=== PATIENT | male | born 1935 | race Caucasian/White ===

== ENCOUNTER 2016-08-09 16:14 | Inpatient (IN) | payer MEDICARE, OTHER ==
[~2016-08-09] VITALS: Ht 172.7 cm; Wt 73.5 kg
[~2016-08-09 16:14] MED LIST: AMBI5TAB PO; AMIO20TA FT; AMLO5TAB2 PO; AMMO12LO TOP; ASPI81CH PO; ASPI81TA PO; ATOR1TAB19 PO; BENA20TA6 PO; BIMA01SOL OU; BRIM1OPD OU; CAPT62TA PO; CARV6.25 PO; CIPR500T89 PO; CLEO300C2 PO; CLOP75TA2 PO; COLA100C PO; COMB0.2S OU; COMP1TAB PO; ERYT5OPO OU; FLAG500T PO; FLOM5CAP PO; FLUC200T2 PO; FURO40TA2 PO; K-TA10TA2 PO; KEPP1000 PO; KEPP1TAB2 PO; KEPP250T5 PO; LASI20TA PO; LEVO88TA3 PO; LISI10TA4 PO; MAGO400T PO; META28.35 PO; METF500T PO; MICR10CA PO; MOM30SS PO; NIAC1TAB PO; NYST100024 TOP; POTA10CA PO; SENO8.6T2 PO; TAMS0.4C2 PO; TEMO0.0517 TOP; TIMO0.5S4 OU; TRUS1SOL OU; TYLE325T5 PO; VIMP200T PO; VITMTA PO; ZYLO300T4 PO
[2016-08-09 17:23] LABS: MEAN CORPUSCULAR HEMOGLOBIN 33.2 pg (27.0-33.0); MEAN CORPUSCULAR HGB CONC 33.4 g/dl (32.0-36.5); MEAN CORPUSCULAR VOLUME 99.3 fl (80.0-96.0); PLATELET COUNT, AUTOMATED 226 k/mm3 (150-450); RED CELL DISTRIBUTION WIDTH 14.2 % (11.5-14.5); WHITE BLOOD COUNT 4.6 K/mm3 (4.0-10.0)
[2016-08-09 17:35] LABS: ALBUMIN/GLOBULIN RATIO 0.83 (1.00-1.93); ALKALINE PHOSPHATASE 109 U/L (45-117); ALT/SGPT 24 U/L (12-78); ANION GAP 8 MEQ/L (8-16); AST/SGOT 12 U/L (15-37); BILIRUBIN,DIRECT 0.1 MG/DL (0.0-0.2); BILIRUBIN,TOTAL 0.3 MG/DL (0.2-1.0); BLOOD UREA NITROGEN 26 MG/DL (7-18); CALCIUM LEVEL 8.6 MG/DL (8.8-10.2); CARBON DIOXIDE LEVEL 32 MEQ/L (21-32); CHLORIDE LEVEL 103 MEQ/L (98-107); CREATININE FOR GFR 1.03 MG/DL (0.70-1.30); GLOMERULAR FILTRATION RATE > 60.0 (>35); GLUCOSE, FASTING 110 MG/DL (83-110); POTASSIUM SERUM 3.3 MEQ/L (3.5-5.1); SODIUM LEVEL 143 MEQ/L (136-145); TOTAL PROTEIN 6.6 GM/DL (6.4-8.2)
[2016-08-09 17:36] LABS: BANDS 1 % (< 11); EOSINOPHILS 4 % (0-5)
--- NOTE | 2016-08-09 17:38 | REP ---
AP PORTABLE CHEST: 08/09/2016 at 4:56 p.m.: Comparison: PA and lateral chest 04/26/2016, 03/04/2016. Clinical history: Weakness. Findings. Dual lead pacer over the left upper chest with leads in the right atrium and right ventricle. Sternotomy wires are again seen. Surgical clips in the mediastinum from prior CABG noted. There is left ventricular configuration of the heart. I see no vascular redistribution or pulmonary edema. Some atelectatic change. Retrocardiac left lower lobe suspected with poor visualization of the diaphragm. The right lung base was clear. The aorta is calcified at the arch, minimally tortuous with aneurysm. Airway intact. Bones demineralized. Impression: 1. Cardiomegaly with left ventricular enlargement but no vascular redistribution, pulmonary edema or definite effusion. 2. Loss of definition left diaphragm may reflect some basilar atelectatic change left lower lobe. 3. Prior CABG and a dual lead pacer unchanged. Signed by Jonas Cruz MD 08/09/2016 08:02 P
[2016-08-09] MEDS ORDERED: ACETAMINOPHEN TAB 650MG DOSE (2X325MG) PO PRN (18:15)
[2016-08-09] MEDS ORDERED: BISACODYL 5 MG TAB PO PRN (18:15)
[2016-08-09] MEDS ORDERED: POTASSIUM CHLORIDE 10 MEQ SR TABLET PO ONE (18:15)
--- NOTE | 2016-08-09 18:15 | ECGEPIP ---
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
[2016-08-09] MEDS ORDERED: AMMO12CR4 TOP (19:02)
[2016-08-09] MEDS ORDERED: VIMP150T PO (19:03)
[2016-08-09] MEDS ORDERED: VITA10002 PO (19:19)
[2016-08-09] MEDS ORDERED: COMB0.2S OU (19:19)
[2016-08-09] MEDS ORDERED: LEVO112T25 PO (19:19)
[2016-08-09] MEDS ORDERED: FISH1000 PO (19:19)
[2016-08-09] MEDS ORDERED: CAPT125TA PO (19:19)
[2016-08-09] MEDS ORDERED: FURO40TA2 PO (19:19)
[2016-08-09] MEDS ORDERED: LEVE750T5 PO (19:19)
[2016-08-09] MEDS ORDERED: VENL75TA3 PO (19:19)
[2016-08-09] MEDS ORDERED: POTA20TA PO (19:19)
[2016-08-09] MEDS ORDERED: AMIO20TA PO (19:19)
[2016-08-09 20:00] VITALS: BP 138/70
[2016-08-09] MEDS ORDERED: levETIRAcetam 250MG TABLET (KEPPRA) As Ordered ONE (22:08)
[2016-08-09] MEDS ORDERED: TAMSULOSIN 0.4 MG CAP As Ordered ONE (22:08)
[2016-08-09] MEDS ORDERED: POTASSIUM CHLORIDE 10 MEQ SR TABLET As Ordered ONE (22:08)
[2016-08-09] MEDS ORDERED: zolPIDEM TARTRATE 5 MG TAB As Ordered ONE (22:09)
[2016-08-09] MEDS: OMEGA-3 1050MG CAPSULE PO SCH (22:33)
[2016-08-09] MEDS: TAMSULOSIN 0.4 MG CAP PO SCH (22:33)
[2016-08-09] MEDS: levETIRAcetam 250MG TABLET (KEPPRA) PO SCH (22:33)
[2016-08-09] MEDS: ATORVASTATIN 10 MG TAB PO SCH (22:34)
[2016-08-09] MEDS: CAPTOpril 6.25 MG PER 1/2 TABLET PO SCH (22:34)
[2016-08-09] MEDS: zolPIDEM TARTRATE 5 MG TAB PO SCH (22:34)
[2016-08-09] MEDS: CYANOCOBALAMIN 500 MCG TAB PO SCH (22:35)
[2016-08-09] MEDS: DORZOLAMIDE 2% OPHTH SOLN 10 ML BTL OU SCH (22:35)
[2016-08-09] MEDS ORDERED: HEPARIN SOD (PORCINE) 5000 UNITS/ML VIAL As Ordered ONE (22:37)
[2016-08-09] MEDS ORDERED: LACOSAMIDE 50 MG TAB (VIMPAT) As Ordered ONE (22:37)
[2016-08-09] MEDS: LACOSAMIDE 50 MG TAB (VIMPAT) PO SCH (22:39)
[2016-08-09] MEDS: HEPARIN SOD (PORCINE) 5000 UNITS/ML VIAL SC SCH (22:39)
--- NOTE | 2016-08-09 23:12 | HPE ---
DATE OF ADMISSION: 08/09/2016 HOSPITALIST ATTENDING: Martin Perez MD PRIMARY CARE PROVIDER: Wesly Lin MD CHIEF COMPLAINT: Recurrent falls requiring placement. HISTORY OF PRESENT ILLNESS: 81-year-old male with history of atrial fibrillation , coronary artery disease (CAD), congestive heart failure (CHF), diabetes, glaucoma, hypercholesterolemia, hypertension, myocardial infarction (WA), non-Hodgkin lymphoma, carotid endarterectomy, coronary artery bypass graft (CABG), cardiac stents, laser surgery to eyes, pacemaker insertion, follows with Dr. Cook' office, presents to the emergency room brought in by his daughter and her due to inability to care for him at home from recurrent falls. The patient has been extremely weak for the past few weeks requiring two-person assistance. 2 weeks ago, he has been able to walk. "The best I can do is stand with two people holding me." For the past 6 months, he has at least had a fall every month hitting his head, receiving stitches for lacerations on the scalp. The patient was brought by the daughter to his medical oncologist in [place] due to complaints of generalized weakness with concerns for relapse of his non-Hodgkin lymphoma. His medical oncologist at that time admitted him to [facility] for observation and found no concerns for relapse from the lymphoma. No infectious etiology for his weakness. However, a neurologist in [place] evaluated him and felt that he had Parkinson's disease. He was then discharged home but, due to the weather yesterday, he stayed in [place] overnight and was sent home today. At home around 3 p.m., he was unable to stand up unassisted and with maximum assistance with two people at home while going to the toilet, the family felt that he could not care for himself at home and felt that placement would be much more appropriate. He was brought in to [facility] for placement as the family cannot care for him at home. PAST MEDICAL HISTORY: Recent diagnosis of Parkinson's disease at [facility] in [place], atrial fibrillation, CAD, diabetes, hypertension, hypercholesterolemia, CHF, glaucoma, myocardial infarction (WA), non-Hodgkin lymphoma. PAST SURGICAL HISTORY: Carotid endarterectomy, CABG, cardiac stents, laser surgery to the eyes, pacemaker insertion. ALLERGIES: BUCKWHEAT, EGG WHITES, PENICILLIN causing swelling. RAW FRUITS. HOME MEDICATIONS: - ammonia lactate 12% topically area as needed - lacosamide 150 mg twice a day - levetiracetam 750 mg twice a day - Synthroid 125 mcg daily - potassium 20 mEq twice a day - amiodarone 200 mg daily - aspirin 81 mg daily - atorvastatin 10 daily - Lumigan eye drops, one drop daily - brimonidine timolol 0.2 to 0.5% ophthalmic drop, one drop every 12 hours - captopril 12.5 half a tablet twice a day - clobetasol topical cream - fish oil one gram daily - Lasix 40 mg daily - multivitamin one tablet daily - Flomax 0.4 daily - venlafaxine 75 mg daily - cyanocobalamin-salcaprozate 1000 mcg daily - zolpidem 5 mg daily SOCIAL HISTORY: The patient had been a previous smoker, quit in 1961, less than a pack a day while he was in the [employer]. He has quit alcohol use. 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 Lives currently with his and daughter and in their home. Resides also with three grandchildren, two dogs, and one cat. REVIEW OF SYSTEMS: Per history of present illness (HPI); 12-point system otherwise negative. PHYSICAL EXAMINATION: Blood pressure 142/69. Pulse 69, sinus rhythm. Respiratory 18. No temperature was noted. Pulse oximetry 97% on room air. Weight is 73.84 kg. 5 feet 8 inches tall. GENERAL: The patient has scleral injection, dry eyes. He is awake, alert, oriented to person and place and year. He is answering questions appropriately. Speech is fluent. He appears to have cogwheel rigidity. Pill rolling tremors. No facial asymmetry. Tongue is midline. Neck is supple. Full range of motion. No cervical lymphadenopathy or thyromegaly. LUNGS: Clear to auscultation. No wheezing, rales, or rhonchi. HEART: S1, S2, currently sinus rhythm. No murmurs, rubs, or gallops. Pacemaker noted in left anterior chest. ABDOMEN: Soft, nontender, nondistended. Positive bowel sounds. EXTREMITIES: Warm, dry, well perfused. Trace lower extremity edema. Left foot is in a brace secondary to a recent fall and ankle sprain. Range of motion of the left lower extremity could not be performed. EKG: Atrial paced rhythm, ventricular rate at 69, with left axis deviation. Nonspecific ST-T wave changes. LABORATORY DATA: White count of 4.6, hemoglobin 11, hematocrit 33, platelet count 226. Sodium 143, potassium 3.3, chloride 103, bicarbonate 32, BUN 26, creatinine 1, glucose 110, calcium 8.6, total bilirubin 0.3, direct bilirubin 0.1, ALC 12, ALT 24, alkaline phosphatase 109, ammonia 25, total CK 32, MB fraction of 1, troponin I 0.02, total protein of 6.6, and albumin of 3. ASSESSMENT AND PLAN: This is an 81-year-old male with history of CAD, WA, CHF, diabetes, hypertension, hypercholesterolemia, atrial fibrillation, glaucoma, complaining of generalized weakness for several months with recurrent falls sustaining lacerations requiring sutures. The patient was evaluated recently at [facility], admitted for observation for 2 days for generalized weakness, possible resumption of his non-Hodgkin lymphoma. At that time, he was diagnosed with Parkinson's disease with no recurrence of the non-Hodgkin's lymphoma with discharge home yesterday. Due to weather, the patient stayed in [place] overnight and had gone home today. The patient's family had requested for placement due to maximum assistance by two people at home. The patient is agreeable. The patient will be admitted for observation under hospitalist service, Dr. Martin Perez. IMPRESSION: 1. Recurrent falls secondary to progressive Parkinson's disease. Dr. Tulio Candelaria of neurology has been consulted to adjust patient's medication and for further monitoring. The patient has previously been evaluated by Dr. Damon in the past. Fall precautions. 2. History of CAD, WA, congestive heart failure. Appears to be well compensated. Continue with home medications for now, aspirin, atorvastatin, captopril, fish oil, Lasix. Strict intake and output (I and O). Daily weights. Monitor for symptoms of decompensation. 3. Atrial fibrillation. Currently paced rhythm. On chronic amiodarone and aspirin. Due to recurrent falls, full anticoagulation could not be given due to risk of increased bleeding. 4. Hypothyroidism. Continue levothyroxine. 5. Parkinson's disease. Neurology has been consulted, Dr. Candelaria. 6. Non-Hodgkin lymphoma. Stable. Workup at [facility] per medical oncology was negative with no signs of recurrence. 7. Insulin-dependent diabetes. Consistent-carbohydrate diet. Resume home medications. Check A1c. 8. Hypercholesterolemia. Continue fish oil. 9. Electrolyte abnormality, low potassium. Supplement with potassium chloride 20 mEq twice a day. 10. History of glaucoma. Continue eye drops, Lumigan, brimonidine. 11. Anemia. Repeat complete blood count (CBC). No acute indication for blood transfusion. No active bleeding. The patient will be assigned to Dr. Martin Perez 7 a.m. on 08/10/2016. RIAZ
[2016-08-10] VITALS: BP 121/63
[2016-08-10 04:00] VITALS: BP 105/59
[2016-08-10] MEDS ORDERED: HEPARIN SOD (PORCINE) 5000 UNITS/ML VIAL As Ordered ONE (06:00)
[2016-08-10] MEDS: HEPARIN SOD (PORCINE) 5000 UNITS/ML VIAL SC SCH ×3 (06:44→21:31)
[2016-08-10] MEDS: LEVOTHYROXINE 0.112 MG TAB (112 MCG) PO SCH (06:45)
[2016-08-10 07:16] LABS: MEAN CORPUSCULAR HEMOGLOBIN 34.6 pg (27.0-33.0); MEAN CORPUSCULAR HGB CONC 33.3 g/dl (32.0-36.5); MEAN CORPUSCULAR VOLUME 103.7 fl (80.0-96.0); RED CELL DISTRIBUTION WIDTH 14.2 % (11.5-14.5); WHITE BLOOD COUNT 4.9 K/mm3 (4.0-10.0)
[2016-08-10 07:35] LABS: ANION GAP 10 MEQ/L (8-16); BLOOD UREA NITROGEN 23 MG/DL (7-18); CALCIUM LEVEL 8.5 MG/DL (8.8-10.2); CARBON DIOXIDE LEVEL 29 MEQ/L (21-32); CHLORIDE LEVEL 104 MEQ/L (98-107); CREATININE FOR GFR 0.89 MG/DL (0.70-1.30); GLOMERULAR FILTRATION RATE > 60.0 (>35); GLUCOSE, FASTING 108 MG/DL (83-110); SODIUM LEVEL 143 MEQ/L (136-145)
[2016-08-10 08:00] VITALS: BP 127/59
[2016-08-10] MEDS: MULTIVITAMINS/MINERALS THERAP 1 TAB PO SCH (08:28)
[2016-08-10] MEDS: CYANOCOBALAMIN 500 MCG TAB PO SCH ×2 (08:28→21:30)
[2016-08-10] MEDS: levETIRAcetam 250MG TABLET (KEPPRA) PO SCH ×2 (08:29→21:29)
[2016-08-10] MEDS: VENLAFAXINE **XR** 75MG CAPSULE PO SCH (08:29)
[2016-08-10] MEDS: AMIODARONE 200 MG TAB (PACERONE) PO SCH (08:29)
[2016-08-10] MEDS: FUROSEMIDE 40 MG TAB PO SCH (08:29)
[2016-08-10] MEDS: OMEGA-3 1050MG CAPSULE PO SCH ×2 (08:29→21:30)
[2016-08-10] MEDS: DORZOLAMIDE 2% OPHTH SOLN 10 ML BTL OU SCH ×2 (08:30→21:31)
[2016-08-10] MEDS: ASPIRIN 81 MG CHEW TABLET PO SCH (08:30)
[2016-08-10] MEDS: NYSTATIN 100,000 UNITS/GM TOPICAL PWD 15 GM TOP SCH ×2 (09:00→21:31)
[2016-08-10] MEDS: CAPTOpril 6.25 MG PER 1/2 TABLET PO SCH ×2 (09:02→21:30)
[2016-08-10] MEDS: LACOSAMIDE 50 MG TAB (VIMPAT) PO SCH ×2 (09:03→21:30)
[2016-08-10] MEDS ORDERED: BISACODYL 5 MG TAB As Ordered ONE (09:14)
[2016-08-10 16:00] VITALS: BP 110/54
[2016-08-10] MEDS ORDERED: SENNA 8.6 MG TAB (SENOKOT) PO PRN (16:15)
[2016-08-10] MEDS ORDERED: DOCUSATE SODIUM 100 MG CAP PO PRN (16:15)
[2016-08-10] MEDS ORDERED: MOM 30ML SUSPENSION UDC PO PRN (16:15)
[2016-08-10] MEDS ORDERED: DOCUSATE SODIUM 100 MG CAP As Ordered ONE (16:26)
[2016-08-10] MEDS ORDERED: MOM 30ML SUSPENSION UDC As Ordered ONE (16:26)
--- NOTE | 2016-08-10 18:36 | EDDOCDS ---
Physician Documentation [facility] Name: Zion Mack Age: 81 yrs Sex: Male : 1935 Arrival Date: 08/09/2016 Time: 16:14 Bed Admit Hold Private MD: Wesly Lin H. Disposition: 08/09/16 18:11 Hospitalization ordered by Ruba Sánchez for Inpatient Admission. Preliminary diagnosis are Parkinson's disease, Weakness. - Bed requested for 4 [place]. - Status is Inpatient Admission. 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 - Problem is new. - Symptoms are unchanged. Historical: - Allergies: Buckwheat; egg whites; PENICILLINS (Swelling); raw fruits; - Home Meds: 1. ammonium lactate 12 % topical crea as needed 2. levothyroxine 125 mcg Oral cap 1 cap once daily 3. potassium chloride 20 mEq Oral cpER 1 tab 2 times per day 4. amiodarone 200 mg Oral tab 1 tab once daily 5. aspirin 81 mg Oral tab 1 tab once daily 6. atorvastatin 10 mg oral tab 1 tab once daily 7. Lumigan 0.03 % Opht drop 1 drop once daily 8. brimonidine-timolol 0.2-0.5 % ophthalmic drop 1 drop every 12 hours 9. captopril 12.5 mg Oral tab 0.5 tab 2 times per day 10. clobetasol 0.05 % Topical crea 11. Fish Oil 1,000 mg Oral cap 12. Lasix 40 mg Oral tab 1 tab once daily 13. multivitamin oral cap 1 tablet daily 14. Flomax 0.4 mg Oral cp24 1 cap once daily 15. cyanocobalamin-salcaprozat sod 1,000-100 mcg-mg oral tab 16. lacosamide 150 mg oral tab 1 tab 2 times per day 17. levetiracetam 750 mg oral tab 1 tab 2 times per day 18. venlafaxine 75 mg oral cp24 1 cap once daily 19. zolpidem 5 mg Oral tab 1 tab once daily - PMHx: a fib; CAD; CHF; Diabetes - IDDM: controlled; Glaucoma; Hypercholesterolemia; Hypertension; Myocardial infarction; Non-Hodgkin's Lymphoma; - PSHx: Carotid surgery; CABG; Cardiac stents; laser surgery to eyes; Pacemaker Insertion; - Social history: Smoking status: Patient states former smoker of tobacco. No barriers to communication noted, The patient speaks fluent Greek, Speaks appropriately for age. - Family history: Not pertinent. - : The pt / caregiver states he / she is not on anticoagulants. Home medication list is obtained from a discharge med list. - Exposure Risk Screening:: None identified. Vital Signs: 08/09 16:33 BP 142 / 69; Pulse 69; Resp 18; Temp 97.9; Pulse Ox 97% on R/A; Weight 73.48 kg / 162 hs1 lbs (R); Height 5 ft. 8 in. (172.72 cm) (R); Pain 2/10; 16:33 Body Mass Index 24.63 (73.48 kg, 172.72 cm) hs1 MDM: 16:37 IV Saline Lock ordered. ml 16:38 CBC with Diff Ordered. EDMS 16:38 MED Profile Ordered. EDMS 16:38 Liver Profile Ordered. EDMS 16:38 UA Ordered. EDMS 16:38 Ammonia ([place] Tube on Ice, Not [place]a Green) Ordered. EDMS 16:38 CIP Ordered. EDMS 16:38 Troponin Ordered. EDMS 16:38 Urine Culture Ordered. EDMS 16:39 Chest, 1 View Ordered. EDMS 16:39 ECG WITH READING ER PHYS+CARDIAG ordered. EDMS 17:26 DIFFERENTIAL NO CHARGE Ordered. EDMS 17:26 PLATELET ESTIMATE Ordered. EDMS 17:40 CBC with Diff Reviewed. ml 17:40 MED Profile Reviewed. ml 17:40 Liver Profile Reviewed. ml 17:40 CIP Reviewed. ml 17:40 Ammonia ([place] Tube on Ice, Not [place]a Green) Reviewed. ml 17:40 Troponin Reviewed. ml 17:40 PLATELET ESTIMATE Reviewed. ml 18:01 Financial registration complete. gjb 18:03 [facility] Payment Agreement was scanned into [employer] and attached to record. gjb 18:13 Admission / Observation Status ordered. EDMS 18:13 NO ADDED SALT DIET ordered. EDMS 18:15 PHYSICAL THERAPY EVAL & TREAT ordered. EDMS 19:34 BASIC METABOLIC PROFILE Ordered. EDMS 19:34 COMPLETE BLOOD COUNT Ordered. EDMS 19:45 Admission Orders was scanned into [employer] [place] and attached to record. rs6 08/10 11:47 Other: HINN Letter was scanned into [employer] [place] and attached to record. jl 13:37 T-Sheet-- Draft Copy was scanned into [employer] [place] and attached to record. 14:19 Admission / Observation Status ordered. EDMS Signatures: Dispatcher [employer] EDMS Malvin Johnson MD MD ml Sobkiewicz, Michele, RN RN ms2 Marie Fitzgerald RN RN [facility] Carleen, Maurisio, PSA PSA jl Joi, Sanjuana, Reg Reg gb Ayesha Irizarry RN RN hs1 Bambi Antoine RN RN sls2 Cindy Ahuja, JHONNY WEIR FISHERMAN rs6 Nikki Johnson The chart was reviewed and I authenticate all verbal orders and agree with the evaluation and treatment provided.Corrections: (The following items were deleted from the chart) :08/09 17:21 Home Meds: lacosamide 150 mg oral tab 1 tab 2 times per day; hs1 ms2 08/10 12:08/09 17:21 Home Meds: levetiracetam 750 mg oral tab 1 tab 2 times per day; hs1 ms2 08/10 12:53 08/09 17:21 Home Meds: venlafaxine 75 mg oral cp24 1 cap once daily; hs1 ms2 08/10 12:53 08/09 17:21 Home Meds: zolpidem 5 mg Oral tab 1 tab once daily; hs1 ms2 Attachments: 18:03 [facility] Payment Agreement gjiain 19:45 Admission Orders rs6 13:37 T-Sheet-- Draft Copy MTDD
--- NOTE | 2016-08-10 18:36 | EDDOCDS ---
Nurse's Notes [facility] Name: Kaley Wagner Age: 81 yrs Sex: Male : 1935 Arrival Date: 08/09/2016 Time: 16:14 Bed Admit Hold Private MD: Wesly Lin H. Diagnosis: Parkinson's disease;Weakness Presentation: 08/09 16:20 Presenting complaint: Patient states: spent night in the hotel in [place] last night hs1 due to weather. Woke up this morning and was very weak. Daughter states has been a past 2 week decreasing ambulatory and history of falls. Daughter states was taken to [facility] for weakness and cancer specialist to try and find reason for weakness. Concern for Parkinson's as neurology was consulted. Daughter reports 2 person max assist and family and friends have been enlisted to help and it is becoming an unsafe situation. EMS states: 2 days ago discharged from [facility] due to generalized weakness. Patient continues to have weakness. Unable to get out of bed on own accord. Pt reports extreme fatigue and constipation. Adult Sepsis Screening: The patient does not have new or worsening altered mentation. Patient's respiratory rate is less than 22. Systolic blood pressure is greater than 100. Patient has a qSOFA score of 0- Negative Sepsis Screen. Suicide/Homicide risk assessment- the patient denies having any suicidal and/or homicidal ideations and does not present with any other emotional, behavioral or mental health complaints. Status: Patient is not a vp celebrity services or dependent. Transition of care: patient was not received from another setting of care. 16:20 Acuity: DILLON Level 3 hs1 16:20 Method Of Arrival: Ambulance hs1 Triage Assessment: 16:31 General: Appears in no apparent distress, Behavior is appropriate for age, cooperative. hs1 Pain: Location: left foot Pain currently is 2 out of 10 on a pain scale. Neurological: Level of Consciousness is awake, alert, obeys commands, Oriented to person, place, time, Corrosion Control Engineer are equal bilaterally. Cardiovascular: Rhythm is sinus rhythm No ectopy. Respiratory: Airway is patent Respiratory effort is even, unlabored. Derm: Skin is pink, warm & dry. normal. Musculoskeletal: ortho boot noted to left ankle/foot. Historical: - Allergies: Buckwheat; egg whites; PENICILLINS (Swelling); raw fruits; - Home Meds: 1. ammonium lactate 12 % topical crea as needed 2. levothyroxine 125 mcg Oral cap 1 cap once daily 3. potassium chloride 20 mEq Oral cpER 1 tab 2 times per day 4. amiodarone 200 mg Oral tab 1 tab once daily 5. aspirin 81 mg Oral tab 1 tab once daily 6. atorvastatin 10 mg oral tab 1 tab once daily 7. Lumigan 0.03 % Opht drop 1 drop once daily 8. brimonidine-timolol 0.2-0.5 % ophthalmic drop 1 drop every 12 hours 9. captopril 12.5 mg Oral tab 0.5 tab 2 times per day 10. clobetasol 0.05 % Topical crea 11. Fish Oil 1,000 mg Oral cap 12. Lasix 40 mg Oral tab 1 tab once daily 13. multivitamin oral cap 1 tablet daily 14. Flomax 0.4 mg Oral cp24 1 cap once daily 15. cyanocobalamin-salcaprozat sod 1,000-100 mcg-mg oral tab 16. lacosamide 150 mg oral tab 1 tab 2 times per day 17. levetiracetam 750 mg oral tab 1 tab 2 times per day 18. venlafaxine 75 mg oral cp24 1 cap once daily 19. zolpidem 5 mg Oral tab 1 tab once daily - PMHx: a fib; CAD; CHF; Diabetes - IDDM: controlled; Glaucoma; Hypercholesterolemia; Hypertension; Myocardial infarction; Non-Hodgkin's Lymphoma; - PSHx: Carotid surgery; CABG; Cardiac stents; laser surgery to eyes; Pacemaker Insertion; - Social history: Smoking status: Patient states former smoker of tobacco. No barriers to communication noted, The patient speaks fluent Faroese, Speaks appropriately for age. - Family history: Not pertinent. - : The pt / caregiver states he / she is not on anticoagulants. Home medication list is obtained from a discharge med list. - Exposure Risk Screening:: None identified. Screenin:06 Screening information is obtained from the patient. Fall risk: At risk due to age, hs1 apparent cognitive impairment, gait disturbance, prior history of falls, The following interventions are performed due to a positive Fall Risk Screen: Fall Risk is added to Special Handling on the patient Summary Screen. A Fall Risk Bracelet was applied to the patient. Side Rails are placed in the up position. A Call Velez is given with instruction to call for help when getting out of bed. Fall Alert bracelet is placed on the patient. Assistance ADL's: Requires assistance with meal preparation, this assistance is provided by bathing, assistance is provided by family members, dressing, assistance is provided by is needing more help. toileting, assistance is provided by housework, assistance is provided by family members. Abuse/DV Screen: The patient / caregiver reports he/she is: not in a situation that causes fear, pain or injury. Nutritional screening: No deficits noted. Advance Directives: Currently, there is a health care proxy, There is an active DNR order and the pt has a copy here at this time. There is an active Power of Home Health Caregiver. home support is inadequate. Assessment: 17:12 General: Appears in no apparent distress, Behavior is appropriate for age, cooperative. hs1 Pain: Location: left foot Pain currently is 2 out of 10 on a pain scale. Neurological: Level of Consciousness is awake, alert, obeys commands, Oriented to person, place, time. Cardiovascular: Rhythm is sinus rhythm No ectopy. Respiratory: Airway is patent Respiratory effort is even, unlabored, Respiratory pattern is regular, symmetrical. GI: No deficits noted. Derm: Skin is pink, warm & dry. normal. 18:15 General: Appears in no apparent distress, comfortable, Behavior is appropriate for age, hs1 cooperative. General: Behavior is quiet, Resting on stretcher at present. Daughter helped him with using urinal and urine sent for labs at this time. . Respiratory: Airway is patent Respiratory effort is even, unlabored, Respiratory pattern is regular, symmetrical. Derm: Skin is pink, warm & dry. 19:56 Reassessment: Patient denies pain at this time. Patient states feeling better. Patient cf2 states symptoms have improved. Social Work Consult: 18:47 Social Work Note: HINN letter signed by pt. Pt. daughter, Jessica Batres( [phone]) ms present in ER and also aware of HINN letter. 08/10 08:29 Social Work Note: Spoke with Tasha \T\ PT to let her know Pt needs to be seen in the ED. rb 11:48 Social Work Note: PSA was advised by Case management that HINN letter used in ED jl contains the incorrect contact number for patient's request for a QIO appeal/case review. New HINN (which includes Larry SANDOVALO information) was provided by Case Management, completed by this mortgage underwriter & reviewed with patient's , following completion of PT eval. Vital Signs: 08/09 16:33 BP 142 / 69; Pulse 69; Resp 18; Temp 97.9; Pulse Ox 97% on R/A; Weight 73.48 kg (R); hs1 Height 5 ft. 8 in. (172.72 cm) (R); Pain 2/10; 16:33 Body Mass Index 24.63 (73.48 kg, 172.72 cm) hs1 Vitals: 16:33 Log In Time N/A - ambulance arrival. hs1 ED Course: 16:16 Patient visited by Erum Delatorre, Manager Resort. lbd 16:16 Wesly Lin is Private Physician. lbd 16:16 Patient moved to Waiting lbd 16:16 Patient moved to 4 lbd 16:19 Malvin Johnson MD is Attending Physician. ml 16:19 Patient visited by Malvin Johnson MD. ml 16:29 Triage Initiated hs1 16:57 Patient visited by Mary Arrieta PCA. jlf 16:58 Patient visited by Mary Arrieat PCA. jlf 16:58 EKG done. (by ED staff). Reviewed by Malvin Johnson MD. jlf 17:11 Inserted saline lock: 20 gauge in right forearm and blood collected. The patient hs1 tolerated the procedure well. 18:02 Patient visited by Ayesha Irizarry RN. hs1 18:03 [facility] Payment Agreement was scanned into [employer] and attached to record. gjb 18:03 DIFFERENTIAL NO CHARGE Sent. hs1 18:08 The patient / caregiver is instructed regarding the plan of care and ED course. hs1 18:11 Ruba Sánchez is Hospitalizing Provider. ml 18:14 Chest, 1 View Returned. EDMS 18:41 Patient moved to Admit Hold mcp 19:05 Portia Freeman,RN is Primary Nurse. cf2 19:05 Patient visited by Portia Freeman,PRABHA. cf2 19:13 EKG-ADULT Returned. EDMS 19:22 Patient visited by Portia Freeman,PRABHA. cf2 19:45 Admission Orders was scanned into [employer] and attached to record. rs6 19:56 Patient visited by Portia Freeman RN. cf2 19:56 Patient has correct armband on for positive identification. Placed in gown. Call light cf2 in reach. Side rails up X 1. Side rails up X2. Adult w/ patient. playground monitor on. Pulse ox on. NIBP on. Property :Personal belongings accompany Pt. Door closed. Noise minimized. Visitors limited. Lights dimmed. Moved to private room. Verbal reassurance given. Warm blanket given. Pillow given. Head of bed elevated. 19:56 No procedures done that require assistance. cf2 08/10 04:55 Patient moved to 19 cz 06:21 Patient moved to Admit Hold ml3 11:47 Other: HINN Letter was scanned into [employer] and attached to record. jl 12:38 Patient moved to 31 ct3 13:06 Patient moved to Admit Hold jo3 13:37 T-Sheet-- Draft Copy was scanned into [employer] and attached to record. gb Order Results: Lab Order: CBC with Diff; SPEC'M 08/09/16 16:51 Test: WHITE BLOOD COUNT; Value: 4.6; Range: 4.0-10.0; Units: K/mm3; Status: F Test: RED BLOOD COUNT; Value: 3.39; Range: 4.30-6.10; Abnormal: Below low normal; Units: M/mm3; Status: F Test: HEMOGLOBIN; Value: 11.2; Range: 14.0-18.0; Abnormal: Below low normal; Units: g/dl; Status: F Test: HEMATOCRIT; Value: 33.6; Range: 42.0-52.0; Abnormal: Below low normal; Units: %; Status: F Test: MEAN CORPUSCULAR VOLUME; Value: 99.3; Range: 80.0-96.0; Abnormal: Above high normal; Units: fl; Status: F Test: MEAN CORPUSCULAR HEMOGLOBIN; Value: 33.2; Range: 27.0-33.0; Abnormal: Above high normal; Units: pg; Status: F Test: MEAN CORPUSCULAR HGB CONC; Value: 33.4; Range: 32.0-36.5; Units: g/dl; Status: F Test: RED CELL DISTRIBUTION WIDTH; Value: 14.2; Range: 11.5-14.5; Units: %; Status: F Test: PLATELET COUNT, AUTOMATED; Value: 226; Range: 150-450; Units: k/mm3; Status: F Test: NEUTROPHILS; Value: 64; Range: 35-75; Units: %; Status: F Test: BANDS; Value: 1; Range: < 11; Units: %; Status: F Test: LYMPHOCYTES; Value: 23; Range: 16-52; Units: %; Status: F Test: MONOCYTES; Value: 4; Range: 0-8; Units: %; Status: F Test: EOSINOPHILS; Value: 4; Range: 0-5; Units: %; Status: F Test: ATYPICAL LYMPH; Value: 4; Range: 0-5; Units: %; Status: F Test: MACROCYTOSIS; Value: 1+; Status: F Lab Order: MED Profile; [facility] 08/09/16 16:50 Test: GLUCOSE, FASTING; Value: 110; Range: 83-110; Units: MG/DL; Status: F Test: BLOOD UREA NITROGEN; Value: 26; Range: 7-18; Abnormal: Above high normal; Units: MG/DL; Status: F Test: CREATININE FOR GFR; Value: 1.03; Range: 0.70-1.30; Units: MG/DL; Status: F Test: GLOMERULAR FILTRATION RATE; Value: > 60.0; Range: >35; Status: F Test: SODIUM LEVEL; Value: 143; Range: 136-145; Units: MEQ/L; Status: F Test: POTASSIUM SERUM; Value: 3.3; Range: 3.5-5.1; Abnormal: Below low normal; Units: MEQ/L; Status: F Test: CHLORIDE LEVEL; Value: 103; Range: 98-107; Units: MEQ/L; Status: F Test: CARBON DIOXIDE LEVEL; Value: 32; Range: 21-32; Units: MEQ/L; Status: F Test: ANION GAP; Value: 8; Range: 8-16; Units: MEQ/L; Status: F Test: CALCIUM LEVEL; Value: 8.6; Range: 8.8-10.2; Abnormal: Below low normal; Units: MG/DL; Status: F Test Note: ; Units are mL/min/1.73 m2 Chronic Kidney Disease Staging per NKF: Stage I & II GFR >=60 Normal to Mildly Decreased Stage III GFR 30-59 Moderately Decreased Stage IV GFR 15-29 Severely Decreased Stage V GFR <15 Very Little GFR Left ESRD GFR <15 on LASER/ELECTRO OPTICS TECHNICIAN Lab Order: Liver Profile; SPEC'M 08/09/16 16:50 Test: AST/SGOT; Value: 12; Range: 15-37; Abnormal: Below low normal; Units: U/L; Status: F Test: ALT/SGPT; Value: 24; Range: 12-78; Units: U/L; Status: F Test: ALKALINE PHOSPHATASE; Value: 109; Range: 45-117; Units: U/L; Status: F Test: BILIRUBIN,TOTAL; Value: 0.3; Range: 0.2-1.0; Units: MG/DL; Status: F Test: BILIRUBIN,DIRECT; Value: 0.1; Range: 0.0-0.2; Units: MG/DL; Status: F Test: TOTAL PROTEIN; Value: 6.6; Range: 6.4-8.2; Units: GM/DL; Status: F Test: ALBUMIN; Value: 3.0; Range: 3.2-5.2; Abnormal: Below low normal; Units: GM/DL; Status: F Test: ALBUMIN/GLOBULIN RATIO; Value: 0.83; Range: 1.00-1.93; Abnormal: Below low normal; Status: F Lab Order: UA; SPEC'M 08/09/16 18:08 Test: APPEARANCE, URINE; Value: CLEAR; Range: CLEAR; Status: F Test: COLOR, URINE; Value: YELLOW; Range: YELLOW; Status: F Test: PH,URINE; Value: 6.0; Range: 5.0-9.0; Units: UNITS; Status: F Test: SPECIFIC GRAVITY URINE AUTO; Value: 1.013; Range: 1.002-1.035; Status: F Test: PROTEIN, URINE AUTO; Value: NEGATIVE; Range: NEGATIVE; Units: mg/dL; Status: F Test: GLUCOSE, URINE (UA) AUTO; Value: NEGATIVE; Range: NEGATIVE; Units: mg/dL; Status: F Test: KETONE, URINE AUTO; Value: NEGATIVE; Range: NEGATIVE; Units: mg/dL; Status: F Test: UROBILINOGEN, URINE AUTO; Value: 2.0; Range: 0.0-2.0; Abnormal: Above high normal; Units: mg/dL; Status: F Test: BILIRUBIN, URINE AUTO; Value: NEGATIVE; Range: NEGATIVE; Status: F Test: NITRITE, URINE AUTO; Value: NEGATIVE; Range: NEGATIVE; Status: F Test: LEUKOCYTE ESTERASE, URINE AUTO; Value: NEGATIVE; Range: NEGATIVE; Status: F Test: BLOOD, URINE BLOOD; Value: NEGATIVE; Range: NEGATIVE; Status: F Test: WBC, URINE AUTO; Value: 0; Range: 0-3; Units: /HPF; Status: F Test: RBC, URINE AUTO; Value: 2; Range: 0-3; Units: /HPF; Status: F Test: BACTERIA, URINE AUTO; Value: NEGATIVE; Range: NEGATIVE; Status: F Test: SQUAMOUS EPITHELIAL CELL UR AU; Value: 0; Range: 0-6; Units: /HPF; Status: F Test: MUCUS, URINE; Value: SMALL; Range: NEGATIVE; Status: F Test: HYALINE CAST, URINE AUTO; Value: 5; Range: 0-1; Units: /LPF; Status: F Lab Order: Urine Culture; [facility] 08/09/16 18:08 Test: URINE CULTURE; Value: URINE CULTURE RESULT; Status: F Test: URINE CULTURE; Value: NO GROWTH CLINICAL SIGNIFICANCE 2 OR MORE ORGANISMS; Status: F Lab Order: Ammonia ([place] Tube on Ice, Not [place]); [facility] 08/09/16 16:51 Test: AMMONIA; Value: 25; Range: <32; Units: uMOL/L; Status: F Lab Order: CIP; [facility] 08/09/16 16:50 Test: CPK CREATINE PHOSPHOKINASE; Value: 32; Range: 39-308; Abnormal: Below low normal; Units: U/L; Status: F Test: CK-MB VALUE MASS; Value: 1.0; Range: 0.0-3.6; Units: NG/ML; Status: F Test: MB/CK RELATIVE INDEX; Value: 3.12; Range: < OR =4; Status: F Test Note: ; DIAGNOSIS CRITERIA MMB ng/ml Relative Index (RI) NON-AMI < or = 5 N/A [place]ONE > 5 < or = 4 AMI > 5 > 4 Lab Order: Troponin; SPEC'08/09/16 16:50 Test: TROPONIN I; Value: 0.02; Range: < 0.10; Units: NG/ML; Status: F Test Note: ; Troponin I Reference Interval for [facility] [employer] LOCI: 99th Percentile= 0.00-0.045 ng/ml Risk Stratification: <= 0.10 ng/ml Decreased Risk for Adverse Clinical Events. 0.10-1.50 ng/ml Increased Risk for Adverse Clinical Events. Evaluation of additional criterion and/or repeat testing in 2-6 hours is suggested to rule out myocardial damage. >= 1.50 ng/ml Indicative of Myocardial Injury. Lab Order: PLATELET ESTIMATE; SPEC08/09/16 16:51 Test: PLATELET ESTIMATE; Value: NORMAL; Range: NORMAL; Status: F Lab Order: BASIC METABOLIC PROFILE; SPEC08/10/16 06:50 Test: GLUCOSE, FASTING; Value: 108; Range: 83-110; Units: MG/DL; Status: F Test: BLOOD UREA NITROGEN; Value: 23; Range: 7-18; Abnormal: Above high normal; Units: MG/DL; Status: F Test: CREATININE FOR GFR; Value: 0.89; Range: 0.70-1.30; Units: MG/DL; Status: F Test: GLOMERULAR FILTRATION RATE; Value: > 60.0; Range: >35; Status: F Test: SODIUM LEVEL; Value: 143; Range: 136-145; Units: MEQ/L; Status: F Test: POTASSIUM SERUM; Value: 4.0; Range: 3.5-5.1; Abnormal: Delta; Units: MEQ/L; Status: F Test: CHLORIDE LEVEL; Value: 104; Range: 98-107; Units: MEQ/L; Status: F Test: CARBON DIOXIDE LEVEL; Value: 29; Range: 21-32; Units: MEQ/L; Status: F Test: ANION GAP; Value: 10; Range: 8-16; Units: MEQ/L; Status: F Test: CALCIUM LEVEL; Value: 8.5; Range: 8.8-10.2; Abnormal: Below low normal; Units: MG/DL; Status: F Test Note: ; Units are mL/min/1.73 m2 Chronic Kidney Disease Staging per NKF: Stage I & II GFR >=60 Normal to Mildly Decreased Stage III GFR 30-59 Moderately Decreased Stage IV GFR 15-29 Severely Decreased Stage V GFR <15 Very Little GFR Left ESRD GFR <15 on LASER/ELECTRO OPTICS TECHNICIAN Lab Order: COMPLETE BLOOD COUNT; SPEC'M 08/10/16 06:50 Test: WHITE BLOOD COUNT; Value: 4.9; Range: 4.0-10.0; Units: K/mm3; Status: F Test: RED BLOOD COUNT; Value: 3.05; Range: 4.30-6.10; Abnormal: Below low normal; Units: M/mm3; Status: F Test: HEMOGLOBIN; Value: 10.5; Range: 14.0-18.0; Abnormal: Below low normal; Units: g/dl; Status: F Test: HEMATOCRIT; Value: 31.6; Range: 42.0-52.0; Abnormal: Below low normal; Units: %; Status: F Test: MEAN CORPUSCULAR VOLUME; Value: 103.7; Range: 80.0-96.0; Abnormal: Above high normal; Units: fl; Status: F Test: MEAN CORPUSCULAR HEMOGLOBIN; Value: 34.6; Range: 27.0-33.0; Abnormal: Above high normal; Units: pg; Status: F Test: MEAN CORPUSCULAR HGB CONC; Value: 33.3; Range: 32.0-36.5; Units: g/dl; Status: F Test: RED CELL DISTRIBUTION WIDTH; Value: 14.2; Range: 11.5-14.5; Units: %; Status: F Test: PLATELET COUNT, AUTOMATED; Value: 194; Range: 150-450; Units: k/mm3; Status: F Radiology Order: Chest, 1 View Test: Chest, 1 View REASON FOR EXAMINATION: wkness; AP PORTABLE CHEST: 08/09/2016 at 4:56 p.m.:; ; Comparison: PA and lateral chest 04/26/2016, 03/04/2016.; ; Clinical history: Weakness.; ; Findings. Dual lead pacer over the left upper chest with leads in the right; atrium and right ventricle. Sternotomy wires are again seen. Surgical clips in; the mediastinum from prior CABG noted. There is left ventricular configuration; of the heart. I see no vascular redistribution or pulmonary edema. Some; atelectatic change. Retrocardiac left lower lobe suspected with poor; visualization of the diaphragm. The right lung base was clear. The aorta is; calcified at the arch, minimally tortuous with aneurysm. Airway intact. Bones; demineralized.; ; Impression:; ; 1. Cardiomegaly with left ventricular enlargement but no vascular redistribution,; pulmonary edema or definite effusion.; ; 2. Loss of definition left diaphragm may reflect some basilar atelectatic change; left lower lobe.; ; 3. Prior CABG and a dual lead pacer unchanged.; ; ; Signed by; Jonas Cruz MD 08/09/2016 08:02 P; Radiology Order: EKG-ADULT Test: EKG-ADULT REASON FOR EXAMINATION: wkness; Stationary ECG Study; [facility] - ED; ; Test Date: 2016-08-09; Pat Name: KALEY WAGNER Department:; Room: -; Gender: M Special Investigator: sj; : 1935 Requested By: Malvin Johnson; Order Number: [id number] Reading MD: Jessica Lora; Measurements; Intervals [place]; Rate: 69 P: 189; NC: 357 QRS: -21; QRSD: 90 T: 54; QT: 416; QTc: 449; Interpretive Statements; ELECTRONIC ATRIAL PACEMAKER; BORDERLINE LEFT AXIS DEVIATION; NONSPECIFIC ST T-WAVE ABNORMALITY; ABNORMAL RHYTHM ECG; ; Electronically Signed On 08-09-2016 18:15:44 EST by Jessica Lora; Outcome: 08/09 18:11 Decision to Hospitalize by Provider. ml 19:56 Condition: stable. No special radiology studies were completed. cf2 21:03 Discharge Assessment: Patient awake, alert and oriented x 3. No cognitive and/or cf2 functional deficits noted. Patient verbalized understanding of disposition instructions. Patient awake and alert. patient administered narcotics - no. The following High Risk Discharge criteria are identified: None. Admitted ER admission. 08/10 18:35 Patient left the ED. srm Signatures: Dispatcher [employer] EDMS Malvin Johnson MD MD ml Daly, Linda, Manager Resort Unit lbd Pepe Dennison RN RN ms2 Marie Fitzgerald RN RN [facility] Lizy Nails RN RN mcp Zecher, Calvin, RN RN cz Amina Hewitt, PSA PSA rb Maurisio Durant, PSA PSA jl Jacob, Lizy, PSA PSA ms Joi, Sanjuana, Reg Reg gb Lukas, LizyLowellJena, Manager Resort Unit ml3 Jammie Victor,RN RN jo3 Ayesha Irizarry RN RN hs1 Leslie, Dixie, SET ILLUSTRATOR SET ILLUSTRATOR ct3 Meenakshi, Mary, SET ILLUSTRATOR SET ILLUSTRATOR jlf Cindy Ahuja, SET ILLUSTRATOR SET ILLUSTRATOR rs6 Nikki Johnson Christina,RN RN cf2 Corrections: (The following items were deleted from the chart) 08/09 18:06 16:33 BP 142 / 69; Pulse 69bpm; Resp 18bpm; Pulse Ox 97% RA; 73.48 kg Reported; Height hs1 5 ft. 8 in. Reported; BMI: 24.6; Pain 2/10; hs1 08/10 12:53 08/09 17:21 Home Meds: lacosamide 150 mg oral tab 1 tab 2 times per day; hs1 ms2 08/10 11:53 08/09 17:21 Home Meds: levetiracetam 750 mg oral tab 1 tab 2 times per day; hs1 ms2 08/10 11:53 08/09 17:21 Home Meds: venlafaxine 75 mg oral cp24 1 cap once daily; hs1 ms2 08/10 11:53 08/09 17:21 Home Meds: zolpidem 5 mg Oral tab 1 tab once daily; hs1 ms2 MTDD
[2016-08-10 18:56] VITALS: BP 139/66
[2016-08-10] MEDS: ATORVASTATIN 10 MG TAB PO SCH (21:30)
[2016-08-10] MEDS: TAMSULOSIN 0.4 MG CAP PO SCH (21:30)
[2016-08-10] MEDS: zolPIDEM TARTRATE 5 MG TAB PO SCH (21:31)
[2016-08-10 22:00] VITALS: BP 121/58
[2016-08-11] MEDS: LEVOTHYROXINE 0.112 MG TAB (112 MCG) PO SCH (05:45)
[2016-08-11] MEDS: HEPARIN SOD (PORCINE) 5000 UNITS/ML VIAL SC SCH ×3 (05:45→21:31)
[2016-08-11 06:00] VITALS: BP 125/58
--- NOTE | 2016-08-11 07:15 | CR ---
DATE OF CONSULTATION: 08/10/2016 REFERRING PHYSICIAN: Martin Perez MD REASON FOR CONSULTATION: Frequent falls. HISTORY OF PRESENT ILLNESS: Zion Mack is an 81-year-old man with history of atrial fibrillation, coronary artery disease, status post cardiac bypass, pacemaker placement, diabetes, hypertension, non-Hodgkin's lymphoma who presented to [facility] due to inability to walk and frequent falls. His daughter and her were unable to take care of him at home. Patient has been extremely weak for the last couple of weeks. He has history of seizures and has been on Keppra and Vimpat over the last 1 year, which has been able to control his partial seizures. He started falling down 2 weeks ago, around 07/20/2016. He has fallen four times over the last 2 weeks. He was admitted at [facility] as his daughter took him there as his oncologist works at [facility]. They did not find any evidence of recurrence of lymphoma for which he had chemotherapy in past. Patient has numbness and weakness in his legs. He has imbalance and incoordination. He denies any neck or back pain. He denies any headaches. He denies any recurrent seizures, dysphagia, dysarthria or urinary incontinence. Patient states that as he was about to be discharged from [facility] he was seen by a neurologist who raised possibility of Parkinson disease. I have no notes from [facility]. No medications were started as patient was already discharged from facility and was about to leave. PAST MEDICAL HISTORY: 1. Atrial fibrillation. 2. Coronary artery disease. 3. Diabetes. 4. Hypertension. 5. Dyslipidemia. 6. Congestive heart failure. 7. Non Hodgkin's lymphoma. 8. Seizures. 9. Myocardial infarction. 10. Pacemaker placement. 11. Carotid endarterectomy. 12. Cardiac bypass. 13. Coronary stents. ALLERGIES: PENICILLIN. RAW FRUIT. CURRENT MEDICATIONS: - Vimpat 150 mg by mouth twice a day - Keppra 750 mg by mouth twice a day - Synthroid 125 mcg by mouth daily - potassium chloride 20 mEq by mouth twice a day - amiodarone 2 mg by mouth daily - aspirin 81 mg by mouth daily - Lipitor 10 mg by mouth daily - captopril 12.5 mg by mouth twice a day - Lasix 40 mg by mouth daily - Flomax 0.4 mg by mouth daily - Effexor XR 75 mg by mouth daily - vitamin B12 1000 mcg by mouth daily - Ambien 5 mg by mouth nightly as needed - Timolol eye drops - Lumigan eye drops - Lasix 40 mg by mouth daily - captopril 12.5 mg by mouth twice a day SOCIAL HISTORY: Patient quit smoking many years ago. He denies any alcohol use. He denies illicit drugs. FAMILY HISTORY: Noncontributory. REVIEW OF SYSTEMS: All systems were reviewed and were found to be noncontributory except as mentioned in history of present illness. PHYSICAL EXAMINATION: Temperature 97.8, pulse 70, respiratory rate 18, blood pressure 110/54, 96% saturation on room air. Heart: Regular rate and rhythm. Lungs: Clear to auscultation. Abdomen: Soft, nontender, nondistended. Neurologic exam: Patient is awake, alert, oriented to place, person and time. Normal speech, comprehension and repetition. Extraocular muscles are intact. No facial weakness. Tongue, uvula are midline. 5/5 strength in bilateral upper extremities and 4+/5 strength in legs. Deep tendon reflexes are 1+ in arms and knees and absent at ankles. He has decreased poor <<5:26>> pinprick, vibration sensation in his feet. He needs to two peoples <<5:34>> assistance and is still barely able to walk. Daughter described shuffling gait when he was using his walker. DIAGNOSTIC STUDY: His MRI and MRA scan of brain from 2016 showed small vessel ischemic disease of brain. MRA of neck showed mild internal carotid artery stenosis. ASSESSMENT: 1. Multifactorial gait difficulty. 2. Chemotherapy induced peripheral neuropathy. 3. History of localization related partial onset seizures, not intractable. 4. Suspicion for parkinsonism has been raised at [facility]. 5. There is concern for normal pressure hydrocephalus. PLAN: 1. MRI brain without contrast. 2. Trial of Sinemet 25/100 mg by mouth three times a day. 3. Physical and occupational therapy and rehabilitation. 4. Continue Keppra 750 mg by mouth twice a day and Vimpat 150 mg by mouth twice a day. 5. Check vitamin B12, serum copper, vitamin B1, etc. 6. Follow with our office with Dr. Damon in 2 weeks after hospital discharge.
[2016-08-11] MEDS: levETIRAcetam 250MG TABLET (KEPPRA) PO SCH ×2 (09:07→21:32)
[2016-08-11] MEDS: MULTIVITAMINS/MINERALS THERAP 1 TAB PO SCH (09:07)
[2016-08-11] MEDS: AMIODARONE 200 MG TAB (PACERONE) PO SCH (09:07)
[2016-08-11] MEDS: CAPTOpril 6.25 MG PER 1/2 TABLET PO SCH ×2 (09:07→21:32)
[2016-08-11] MEDS: VENLAFAXINE **XR** 75MG CAPSULE PO SCH (09:07)
[2016-08-11] MEDS: OMEGA-3 1050MG CAPSULE PO SCH ×2 (09:07→21:31)
[2016-08-11] MEDS: FUROSEMIDE 40 MG TAB PO SCH (09:08)
[2016-08-11] MEDS: LACOSAMIDE 50 MG TAB (VIMPAT) PO SCH ×2 (09:08→21:32)
[2016-08-11] MEDS: ASPIRIN 81 MG CHEW TABLET PO SCH (09:08)
[2016-08-11] MEDS: CYANOCOBALAMIN 500 MCG TAB PO SCH ×2 (09:08→21:32)
[2016-08-11] MEDS: NYSTATIN 100,000 UNITS/GM TOPICAL PWD 15 GM TOP SCH ×2 (09:09→21:00)
[2016-08-11] MEDS: DORZOLAMIDE 2% OPHTH SOLN 10 ML BTL OU SCH ×2 (09:09→21:32)
[2016-08-11] MEDS: SINEMET 25-100 MG TAB PO SCH ×3 (11:03→21:32)
[2016-08-11 14:00] VITALS: BP 143/69
[2016-08-11] MEDS: ATORVASTATIN 10 MG TAB PO SCH (21:31)
[2016-08-11] MEDS: zolPIDEM TARTRATE 5 MG TAB PO SCH (21:32)
[2016-08-11] MEDS: TAMSULOSIN 0.4 MG CAP PO SCH (21:32)
[2016-08-11 22:00] VITALS: BP 129/63
[2016-08-12] MEDS: HEPARIN SOD (PORCINE) 5000 UNITS/ML VIAL SC SCH ×3 (05:42→21:32)
[2016-08-12] MEDS: LEVOTHYROXINE 0.112 MG TAB (112 MCG) PO SCH (05:42)
[2016-08-12 06:00] VITALS: BP 134/61
[2016-08-12] MEDS: levETIRAcetam 250MG TABLET (KEPPRA) PO SCH ×2 (09:18→21:32)
[2016-08-12] MEDS: LACOSAMIDE 50 MG TAB (VIMPAT) PO SCH ×2 (09:18→21:32)
[2016-08-12] MEDS: DORZOLAMIDE 2% OPHTH SOLN 10 ML BTL OU SCH ×2 (09:18→21:33)
[2016-08-12] MEDS: AMIODARONE 200 MG TAB (PACERONE) PO SCH (09:19)
[2016-08-12] MEDS: FUROSEMIDE 40 MG TAB PO SCH (09:19)
[2016-08-12] MEDS: SINEMET 25-100 MG TAB PO SCH ×3 (09:19→21:32)
[2016-08-12] MEDS: CYANOCOBALAMIN 500 MCG TAB PO SCH ×2 (09:19→21:33)
[2016-08-12] MEDS: ASPIRIN 81 MG CHEW TABLET PO SCH (09:19)
[2016-08-12] MEDS: CAPTOpril 6.25 MG PER 1/2 TABLET PO SCH ×2 (09:19→21:33)
[2016-08-12] MEDS: NYSTATIN 100,000 UNITS/GM TOPICAL PWD 15 GM TOP SCH ×2 (09:20→21:33)
[2016-08-12] MEDS: OMEGA-3 1050MG CAPSULE PO SCH ×2 (09:21→21:33)
[2016-08-12] MEDS: MULTIVITAMINS/MINERALS THERAP 1 TAB PO SCH (09:21)
[2016-08-12] MEDS: VENLAFAXINE **XR** 75MG CAPSULE PO SCH (09:21)
--- NOTE | 2016-08-12 19:36 | EDDOCDS ---
Physician Documentation [facility] Name: Zion Mack Age: 81 yrs Sex: Male : 1935 Arrival Date: 08/09/2016 Time: 16:14 Bed Admit Hold Private MD: Wesly Lin H. Disposition: 08/09/16 18:11 Hospitalization ordered by Ruba Sánchez for Inpatient Admission. Preliminary diagnosis are Parkinson's disease, Weakness. - Bed requested for 4 [place]. - Status is Inpatient Admission. 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 - Problem is new. - Symptoms are unchanged. Historical: - Allergies: Buckwheat; egg whites; PENICILLINS (Swelling); raw fruits; - Home Meds: 1. ammonium lactate 12 % topical crea as needed 2. levothyroxine 125 mcg Oral cap 1 cap once daily 3. potassium chloride 20 mEq Oral cpER 1 tab 2 times per day 4. amiodarone 200 mg Oral tab 1 tab once daily 5. aspirin 81 mg Oral tab 1 tab once daily 6. atorvastatin 10 mg oral tab 1 tab once daily 7. Lumigan 0.03 % Opht drop 1 drop once daily 8. brimonidine-timolol 0.2-0.5 % ophthalmic drop 1 drop every 12 hours 9. captopril 12.5 mg Oral tab 0.5 tab 2 times per day 10. clobetasol 0.05 % Topical crea 11. Fish Oil 1,000 mg Oral cap 12. Lasix 40 mg Oral tab 1 tab once daily 13. multivitamin oral cap 1 tablet daily 14. Flomax 0.4 mg Oral cp24 1 cap once daily 15. cyanocobalamin-salcaprozat sod 1,000-100 mcg-mg oral tab 16. lacosamide 150 mg oral tab 1 tab 2 times per day 17. levetiracetam 750 mg oral tab 1 tab 2 times per day 18. venlafaxine 75 mg oral cp24 1 cap once daily 19. zolpidem 5 mg Oral tab 1 tab once daily - PMHx: a fib; CAD; CHF; Diabetes - IDDM: controlled; Glaucoma; Hypercholesterolemia; Hypertension; Myocardial infarction; Non-Hodgkin's Lymphoma; - PSHx: Carotid surgery; CABG; Cardiac stents; laser surgery to eyes; Pacemaker Insertion; - Social history: Smoking status: Patient states former smoker of tobacco. No barriers to communication noted, The patient speaks fluent Danish, Speaks appropriately for age. - Family history: Not pertinent. - : The pt / caregiver states he / she is not on anticoagulants. Home medication list is obtained from a discharge med list. - Exposure Risk Screening:: None identified. Vital Signs: 08/09 16:33 BP 142 / 69; Pulse 69; Resp 18; Temp 97.9; Pulse Ox 97% on R/A; Weight 73.48 kg / 162 hs1 lbs (R); Height 5 ft. 8 in. (172.72 cm) (R); Pain 2/10; 16:33 Body Mass Index 24.63 (73.48 kg, 172.72 cm) hs1 MDM: 16:37 IV Saline Lock ordered. ml 16:38 CBC with Diff Ordered. EDMS 16:38 MED Profile Ordered. EDMS 16:38 Liver Profile Ordered. EDMS 16:38 UA Ordered. EDMS 16:38 Ammonia ([place] Tube on Ice, Not [place]a [place]) Ordered. EDMS 16:38 CIP Ordered. EDMS 16:38 Troponin Ordered. EDMS 16:38 Urine Culture Ordered. EDMS 16:39 Chest, 1 View Ordered. EDMS 16:39 ECG WITH READING ER PHYS+CARDIAG ordered. EDMS 17:26 DIFFERENTIAL NO CHARGE Ordered. EDMS 17:26 PLATELET ESTIMATE Ordered. EDMS 17:40 CBC with Diff Reviewed. ml 17:40 MED Profile Reviewed. ml 17:40 Liver Profile Reviewed. ml 17:40 CIP Reviewed. ml 17:40 Ammonia ([place] Tube on Ice, Not [place]) Reviewed. ml 17:40 Troponin Reviewed. ml 17:40 PLATELET ESTIMATE Reviewed. ml 18:01 Financial registration complete. gjb 18:03 [facility] Payment Agreement was scanned into [employer] and attached to record. gjb 18:13 Admission / Observation Status ordered. EDMS 18:13 NO ADDED SALT DIET ordered. EDMS 18:15 PHYSICAL THERAPY EVAL & TREAT ordered. EDMS 19:34 BASIC METABOLIC PROFILE Ordered. EDMS 19:34 COMPLETE BLOOD COUNT Ordered. EDMS 19:45 Admission Orders was scanned into [employer] and attached to record. rs6 08/10 11:47 Other: HINN Letter was scanned into [employer] and attached to record. jl 13:37 T-Sheet-- Draft Copy was scanned into [employer] and attached to record. gb 14:19 Admission / Observation Status ordered. EDVT 08/11 12:50 Radiology Report was scanned into [employer] and attached to record. gb 12:50 Other: MOLST was scanned into [employer] and attached to record. gb 12:50 Other: HEALTHCARE PROXY was scanned into [employer] and attached to record. gb Signatures: Dispatcher [employer] EDVT Malvin Johnson MD MD ml Sobkiewicz, MicheleRN RN ms2 Marie Fitzgerald RN RN srm Carleen, Maurisio, PSA PSA jl Sanjuana Tamez, Reg Reg Ayesha Irizarry RN RN hs1 Bambi Antoine RN RN sls2 Cindy Ahuja, JHONNY SENIOR JAVASCRIPT DEVELOPER rs6 Nikki Johnson The chart was reviewed and I authenticate all verbal orders and agree with the evaluation and treatment provided.Corrections: (The following items were deleted from the chart) 08/10 12:53 08/09 17:21 Home Meds: lacosamide 150 mg oral tab 1 tab 2 times per day; hs1 ms2 08/10 12:53 08/09 17:21 Home Meds: levetiracetam 750 mg oral tab 1 tab 2 times per day; 1 ms2 08/10 12:53 08/09 17:21 Home Meds: venlafaxine 75 mg oral cp24 1 cap once daily; hs1 ms2 08/10 12:53 08/09 17:21 Home Meds: zolpidem 5 mg Oral tab 1 tab once daily; 1 ms2 Attachments: 18:03 [facility] Payment Agreement gjb 19:45 Admission Orders rs6 13:37 T-Sheet-- Draft Copy gb Chart Complete MTDD
--- NOTE | 2016-08-12 19:36 | EDDOCDS ---
Nurse's Notes [facility] Name: Kaley Wagner Age: 81 yrs Sex: Male : 1935 Arrival Date: 08/09/2016 Time: 16:14 Bed Admit Hold Private MD: Wesly Lin H. Diagnosis: Parkinson's disease;Weakness Presentation: 08/09 16:20 Presenting complaint: Patient states: spent night in the hotel in [place] last night hs1 due to weather. Woke up this morning and was very weak. Daughter states has been a past 2 week decreasing ambulatory and history of falls. Daughter states was taken to [facility] for weakness and cancer specialist to try and find reason for weakness. Concern for Parkinson's as neurology was consulted. Daughter reports 2 person max assist and family and friends have been enlisted to help and it is becoming an unsafe situation. EMS states: 2 days ago discharged from [facility] due to generalized weakness. Patient continues to have weakness. Unable to get out of bed on own accord. Pt reports extreme fatigue and constipation. Adult Sepsis Screening: The patient does not have new or worsening altered mentation. Patient's respiratory rate is less than 22. Systolic blood pressure is greater than 100. Patient has a qSOFA score of 0- Negative Sepsis Screen. Suicide/Homicide risk assessment- the patient denies having any suicidal and/or homicidal ideations and does not present with any other emotional, behavioral or mental health complaints. Status: Patient is not a emergency services professional or dependent. Transition of care: patient was not received from another setting of care. 16:20 Acuity: DILLON Level 3 hs1 16:20 Method Of Arrival: Ambulance hs1 Triage Assessment: 16:31 General: Appears in no apparent distress, Behavior is appropriate for age, cooperative. hs1 Pain: Location: left foot Pain currently is 2 out of 10 on a pain scale. 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 Cardiovascular: Rhythm is sinus rhythm No ectopy. Respiratory: Airway is patent Respiratory effort is even, unlabored. Derm: Skin is pink, warm & dry. normal. Musculoskeletal: ortho boot noted to left ankle/foot. Historical: - Allergies: Buckwheat; egg whites; PENICILLINS (Swelling); raw fruits; - Home Meds: 1. ammonium lactate 12 % topical crea as needed 2. levothyroxine 125 mcg Oral cap 1 cap once daily 3. potassium chloride 20 mEq Oral cpER 1 tab 2 times per day 4. amiodarone 200 mg Oral tab 1 tab once daily 5. aspirin 81 mg Oral tab 1 tab once daily 6. atorvastatin 10 mg oral tab 1 tab once daily 7. Lumigan 0.03 % Opht drop 1 drop once daily 8. brimonidine-timolol 0.2-0.5 % ophthalmic drop 1 drop every 12 hours 9. captopril 12.5 mg Oral tab 0.5 tab 2 times per day 10. clobetasol 0.05 % Topical crea 11. Fish Oil 1,000 mg Oral cap 12. Lasix 40 mg Oral tab 1 tab once daily 13. multivitamin oral cap 1 tablet daily 14. Flomax 0.4 mg Oral cp24 1 cap once daily 15. cyanocobalamin-salcaprozat sod 1,000-100 mcg-mg oral tab 16. lacosamide 150 mg oral tab 1 tab 2 times per day 17. levetiracetam 750 mg oral tab 1 tab 2 times per day 18. venlafaxine 75 mg oral cp24 1 cap once daily 19. zolpidem 5 mg Oral tab 1 tab once daily - PMHx: a fib; CAD; CHF; Diabetes - IDDM: controlled; Glaucoma; Hypercholesterolemia; Hypertension; Myocardial infarction; Non-Hodgkin's Lymphoma; - PSHx: Carotid surgery; CABG; Cardiac stents; laser surgery to eyes; Pacemaker Insertion; - Social history: Smoking status: Patient states former smoker of tobacco. No barriers to communication noted, The patient speaks fluent Indonesian, Speaks appropriately for age. - Family history: Not pertinent. - : The pt / caregiver states he / she is not on anticoagulants. Home medication list is obtained from a discharge med list. - Exposure Risk Screening:: None identified. Screenin:06 Screening information is obtained from the patient. Fall risk: At risk due to age, hs1 apparent cognitive impairment, gait disturbance, prior history of falls, The following interventions are performed due to a positive Fall Risk Screen: Fall Risk is added to Special Handling on the patient Summary Screen. A Fall Risk Bracelet was applied to the patient. Side Rails are placed in the up position. A Call Velez is given with instruction to call for help when getting out of bed. Fall Alert bracelet is placed on the patient. Assistance ADL's: Requires assistance with meal preparation, this assistance is provided by bathing, assistance is provided by family members, dressing, assistance is provided by is needing more help. toileting, assistance is provided by housework, assistance is provided by family members. Abuse/DV Screen: The patient / caregiver reports he/she is: not in a situation that causes fear, pain or injury. Nutritional screening: No deficits noted. Advance Directives: Currently, there is a health care proxy, There is an active DNR order and the pt has a copy here at this time. There is an active Power of Scraper Tender. home support is inadequate. Assessment: 17:12 General: Appears in no apparent distress, Behavior is appropriate for age, cooperative. hs1 Pain: Location: left foot Pain currently is 2 out of 10 on a pain scale. Neurological: Level of Consciousness is awake, alert, obeys commands, Oriented to person, place, time. Cardiovascular: Rhythm is sinus rhythm No ectopy. Respiratory: Airway is patent Respiratory effort is even, unlabored, Respiratory pattern is regular, symmetrical. GI: No deficits noted. Derm: Skin is pink, warm & dry. normal. 18:15 General: Appears in no apparent distress, comfortable, Behavior is appropriate for age, hs1 cooperative. General: Behavior is quiet, Resting on stretcher at present. Daughter helped him with using urinal and urine sent for labs at this time. . Respiratory: Airway is patent Respiratory effort is even, unlabored, Respiratory pattern is regular, symmetrical. Derm: Skin is pink, warm & dry. 19:56 Reassessment: Patient denies pain at this time. Patient states feeling better. Patient cf2 states symptoms have improved. Social Work Consult: 18:47 Social Work Note: HINN letter signed by pt. Pt. daughter, Jessica Batres( [phone]) ms present in ER and also aware of HINN letter. 08/10 08:29 Social Work Note: Spoke with Tasha \T\ PT to let her know Pt needs to be seen in the ED. rb 11:48 Social Work Note: PSA was advised by Case management that HINN letter used in ED jl contains the incorrect contact number for patient's request for a QIO appeal/case review. New HINN (which includes Larry SANDOVALO information) was provided by Case Management, completed by this handbook writer & reviewed with patient's , following completion of PT eval. Vital Signs: 08/09 16:33 BP 142 / 69; Pulse 69; Resp 18; Temp 97.9; Pulse Ox 97% on R/A; Weight 73.48 kg (R); hs1 Height 5 ft. 8 in. (172.72 cm) (R); Pain 2/10; 16:33 Body Mass Index 24.63 (73.48 kg, 172.72 cm) hs1 Vitals: 16:33 Log In Time N/A - ambulance arrival. hs1 ED Course: 16:16 Patient visited by Erum Delatorre, Drying Room Operator. lbd 16:16 Wesly Lin is Private Physician. lbd 16:16 Patient moved to Waiting lbd 16:16 Patient moved to 4 lbd 16:19 Malvin Johnson MD is Attending Physician. ml 16:19 Patient visited by Malvin Johnson MD. ml 16:29 Triage Initiated hs1 16:57 Patient visited by Mary Arrieta PCA. jlf 16:58 Patient visited by Mary Arrieta PCA. jlf 16:58 EKG done. (by ED staff). Reviewed by Malvin Johnson MD. jlf 17:11 Inserted saline lock: 20 gauge in right forearm and blood collected. The patient hs1 tolerated the procedure well. 18:02 Patient visited by Ayesha Irizarry RN. hs1 18:03 [facility] Payment Agreement was scanned into [employer] and attached to record. gjb 18:03 DIFFERENTIAL NO CHARGE Sent. hs1 18:08 The patient / caregiver is instructed regarding the plan of care and ED course. hs1 18:11 Ruba Sánchez is Hospitalizing Provider. ml 18:14 Chest, 1 View Returned. EDMS 18:41 Patient moved to Admit Hold mcp 19:05 Portia Freeman,RN is Primary Nurse. cf2 19:05 Patient visited by Portia Freeman,PRABHA. cf2 19:13 EKG-ADULT Returned. EDMS 19:22 Patient visited by Portia Freeman,PRABHA. cf2 19:45 Admission Orders was scanned into [employer] and attached to record. rs6 19:56 Patient visited by Portia Freeman RN. cf2 19:56 Patient has correct armband on for positive identification. Placed in gown. Call light cf2 in reach. Side rails up X 1. Side rails up X2. Adult w/ patient. steel turner on. Pulse ox on. NIBP on. Property :Personal belongings accompany Pt. Door closed. Noise minimized. Visitors limited. Lights dimmed. Moved to private room. Verbal reassurance given. Warm blanket given. Pillow given. Head of bed elevated. 19:56 No procedures done that require assistance. cf2 08/10 04:55 Patient moved to 19 cz 06:21 Patient moved to Admit Hold ml3 11:47 Other: HINN Letter was scanned into [employer] and attached to record. jl 12:38 Patient moved to 31 ct3 13:06 Patient moved to Admit Hold jo3 13:37 T-Sheet-- Draft Copy was scanned into [employer] and attached to record. gb 08/11 12:50 Radiology Report was scanned into [employer] and attached to record. gb 12:50 Other: MOLST was scanned into [employer] and attached to record. gb 12:50 Other: HEALTHCARE PROXY was scanned into [employer] and attached to record. gb Order Results: Lab Order: CBC with Diff; SPEC'M 08/09/16 16:51 Test: WHITE BLOOD COUNT; Value: 4.6; Range: 4.0-10.0; Units: K/mm3; Status: F Test: RED BLOOD COUNT; Value: 3.39; Range: 4.30-6.10; Abnormal: Below low normal; Units: M/mm3; Status: F Test: HEMOGLOBIN; Value: 11.2; Range: 14.0-18.0; Abnormal: Below low normal; Units: g/dl; Status: F Test: HEMATOCRIT; Value: 33.6; Range: 42.0-52.0; Abnormal: Below low normal; Units: %; Status: F Test: MEAN CORPUSCULAR VOLUME; Value: 99.3; Range: 80.0-96.0; Abnormal: Above high normal; Units: fl; Status: F Test: MEAN CORPUSCULAR HEMOGLOBIN; Value: 33.2; Range: 27.0-33.0; Abnormal: Above high normal; Units: pg; Status: F Test: MEAN CORPUSCULAR HGB CONC; Value: 33.4; Range: 32.0-36.5; Units: g/dl; Status: F Test: RED CELL DISTRIBUTION WIDTH; Value: 14.2; Range: 11.5-14.5; Units: %; Status: F Test: PLATELET COUNT, AUTOMATED; Value: 226; Range: 150-450; Units: k/mm3; Status: F Test: NEUTROPHILS; Value: 64; Range: 35-75; Units: %; Status: F Test: BANDS; Value: 1; Range: < 11; Units: %; Status: F Test: LYMPHOCYTES; Value: 23; Range: 16-52; Units: %; Status: F Test: MONOCYTES; Value: 4; Range: 0-8; Units: %; Status: F Test: EOSINOPHILS; Value: 4; Range: 0-5; Units: %; Status: F Test: ATYPICAL LYMPH; Value: 4; Range: 0-5; Units: %; Status: F Test: MACROCYTOSIS; Value: 1+; Status: F Lab Order: MED Profile; SPEC'M 08/09/16 16:50 Test: GLUCOSE, FASTING; Value: 110; Range: 83-110; Units: MG/DL; Status: F Test: BLOOD UREA NITROGEN; Value: 26; Range: 7-18; Abnormal: Above high normal; Units: MG/DL; Status: F Test: CREATININE FOR GFR; Value: 1.03; Range: 0.70-1.30; Units: MG/DL; Status: F Test: GLOMERULAR FILTRATION RATE; Value: > 60.0; Range: >35; Status: F Test: SODIUM LEVEL; Value: 143; Range: 136-145; Units: MEQ/L; Status: F Test: POTASSIUM SERUM; Value: 3.3; Range: 3.5-5.1; Abnormal: Below low normal; Units: MEQ/L; Status: F Test: CHLORIDE LEVEL; Value: 103; Range: 98-107; Units: MEQ/L; Status: F Test: CARBON DIOXIDE LEVEL; Value: 32; Range: 21-32; Units: MEQ/L; Status: F Test: ANION GAP; Value: 8; Range: 8-16; Units: MEQ/L; Status: F Test: CALCIUM LEVEL; Value: 8.6; Range: 8.8-10.2; Abnormal: Below low normal; Units: MG/DL; Status: F Test Note: ; Units are mL/min/1.73 m2 Chronic Kidney Disease Staging per NKF: Stage I & II GFR >=60 Normal to Mildly Decreased Stage III GFR 30-59 Moderately Decreased Stage IV GFR 15-29 Severely Decreased Stage V GFR <15 Very Little GFR Left ESRD GFR <15 on CLEAN ROOM TECHNICIAN Lab Order: Liver Profile; SPEC'M 08/09/16 16:50 Test: AST/SGOT; Value: 12; Range: 15-37; Abnormal: Below low normal; Units: U/L; Status: F Test: ALT/SGPT; Value: 24; Range: 12-78; Units: U/L; Status: F Test: ALKALINE PHOSPHATASE; Value: 109; Range: 45-117; Units: U/L; Status: F Test: BILIRUBIN,TOTAL; Value: 0.3; Range: 0.2-1.0; Units: MG/DL; Status: F Test: BILIRUBIN,DIRECT; Value: 0.1; Range: 0.0-0.2; Units: MG/DL; Status: F Test: TOTAL PROTEIN; Value: 6.6; Range: 6.4-8.2; Units: GM/DL; Status: F Test: ALBUMIN; Value: 3.0; Range: 3.2-5.2; Abnormal: Below low normal; Units: GM/DL; Status: F Test: ALBUMIN/GLOBULIN RATIO; Value: 0.83; Range: 1.00-1.93; Abnormal: Below low normal; Status: F Lab Order: UA; SPEC'M 08/09/16 18:08 Test: APPEARANCE, URINE; Value: CLEAR; Range: CLEAR; Status: F Test: COLOR, URINE; Value: YELLOW; Range: YELLOW; Status: F Test: PH,URINE; Value: 6.0; Range: 5.0-9.0; Units: UNITS; Status: F Test: SPECIFIC GRAVITY URINE AUTO; Value: 1.013; Range: 1.002-1.035; Status: F Test: PROTEIN, URINE AUTO; Value: NEGATIVE; Range: NEGATIVE; Units: mg/dL; Status: F Test: GLUCOSE, URINE (UA) AUTO; Value: NEGATIVE; Range: NEGATIVE; Units: mg/dL; Status: F Test: KETONE, URINE AUTO; Value: NEGATIVE; Range: NEGATIVE; Units: mg/dL; Status: F Test: UROBILINOGEN, URINE AUTO; Value: 2.0; Range: 0.0-2.0; Abnormal: Above high normal; Units: mg/dL; Status: F Test: BILIRUBIN, URINE AUTO; Value: NEGATIVE; Range: NEGATIVE; Status: F Test: NITRITE, URINE AUTO; Value: NEGATIVE; Range: NEGATIVE; Status: F Test: LEUKOCYTE ESTERASE, URINE AUTO; Value: NEGATIVE; Range: NEGATIVE; Status: F Test: BLOOD, URINE BLOOD; Value: NEGATIVE; Range: NEGATIVE; Status: F Test: WBC, URINE AUTO; Value: 0; Range: 0-3; Units: /HPF; Status: F Test: RBC, URINE AUTO; Value: 2; Range: 0-3; Units: /HPF; Status: F Test: BACTERIA, URINE AUTO; Value: NEGATIVE; Range: NEGATIVE; Status: F Test: SQUAMOUS EPITHELIAL CELL UR AU; Value: 0; Range: 0-6; Units: /HPF; Status: F Test: MUCUS, URINE; Value: SMALL; Range: NEGATIVE; Status: F Test: HYALINE CAST, URINE AUTO; Value: 5; Range: 0-1; Units: /LPF; Status: F Lab Order: Urine Culture; [facility] 08/09/16 18:08 Test: URINE CULTURE; Value: URINE CULTURE RESULT; Status: F Test: URINE CULTURE; Value: NO GROWTH CLINICAL SIGNIFICANCE 2 OR MORE ORGANISMS; Status: F Lab Order: Ammonia ([place] Tube on Ice, Not [place]); [facility]' 08/09/16 16:51 Test: AMMONIA; Value: 25; Range: <32; Units: uMOL/L; Status: F Lab Order: CIP; SPEC 08/09/16 16:50 Test: CPK CREATINE PHOSPHOKINASE; Value: 32; Range: 39-308; Abnormal: Below low normal; Units: U/L; Status: F Test: CK-MB VALUE MASS; Value: 1.0; Range: 0.0-3.6; Units: NG/ML; Status: F Test: MB/CK RELATIVE INDEX; Value: 3.12; Range: < OR =4; Status: F Test Note: ; DIAGNOSIS CRITERIA MMB ng/ml Relative Index (RI) NON-AMI < or = 5 N/A [place]ONE > 5 < or = 4 AMI > 5 > 4 Lab Order: Troponin; [facility] 08/09/16 16:50 Test: TROPONIN I; Value: 0.02; Range: < 0.10; Units: NG/ML; Status: F Test Note: ; Troponin I Reference Interval for [employer] LOCI: 99th Percentile= 0.00-0.045 ng/ml Risk Stratification: <= 0.10 ng/ml Decreased Risk for Adverse Clinical Events. 0.10-1.50 ng/ml Increased Risk for Adverse Clinical Events. Evaluation of additional criterion and/or repeat testing in 2-6 hours is suggested to rule out myocardial damage. >= 1.50 ng/ml Indicative of Myocardial Injury. Lab Order: PLATELET ESTIMATE; [facility] 08/09/16 16:51 Test: PLATELET ESTIMATE; Value: NORMAL; Range: NORMAL; Status: F Lab Order: BASIC METABOLIC PROFILE; [facility] 08/10/16 06:50 Test: GLUCOSE, FASTING; Value: 108; Range: 83-110; Units: MG/DL; Status: F Test: BLOOD UREA NITROGEN; Value: 23; Range: 7-18; Abnormal: Above high normal; Units: MG/DL; Status: F Test: CREATININE FOR GFR; Value: 0.89; Range: 0.70-1.30; Units: MG/DL; Status: F Test: GLOMERULAR FILTRATION RATE; Value: > 60.0; Range: >35; Status: F Test: SODIUM LEVEL; Value: 143; Range: 136-145; Units: MEQ/L; Status: F Test: POTASSIUM SERUM; Value: 4.0; Range: 3.5-5.1; Abnormal: Delta; Units: MEQ/L; Status: F Test: CHLORIDE LEVEL; Value: 104; Range: 98-107; Units: MEQ/L; Status: F Test: CARBON DIOXIDE LEVEL; Value: 29; Range: 21-32; Units: MEQ/L; Status: F Test: ANION GAP; Value: 10; Range: 8-16; Units: MEQ/L; Status: F Test: CALCIUM LEVEL; Value: 8.5; Range: 8.8-10.2; Abnormal: Below low normal; Units: MG/DL; Status: F Test Note: ; Units are mL/min/1.73 m2 Chronic Kidney Disease Staging per NKF: Stage I & II GFR >=60 Normal to Mildly Decreased Stage III GFR 30-59 Moderately Decreased Stage IV GFR 15-29 Severely Decreased Stage V GFR <15 Very Little GFR Left ESRD GFR <15 on CLEAN ROOM TECHNICIAN Lab Order: COMPLETE BLOOD COUNT; SPECM 08/10/16 06:50 Test: WHITE BLOOD COUNT; Value: 4.9; Range: 4.0-10.0; Units: K/mm3; Status: F Test: RED BLOOD COUNT; Value: 3.05; Range: 4.30-6.10; Abnormal: Below low normal; Units: M/mm3; Status: F Test: HEMOGLOBIN; Value: 10.5; Range: 14.0-18.0; Abnormal: Below low normal; Units: g/dl; Status: F Test: HEMATOCRIT; Value: 31.6; Range: 42.0-52.0; Abnormal: Below low normal; Units: %; Status: F Test: MEAN CORPUSCULAR VOLUME; Value: 103.7; Range: 80.0-96.0; Abnormal: Above high normal; Units: fl; Status: F Test: MEAN CORPUSCULAR HEMOGLOBIN; Value: 34.6; Range: 27.0-33.0; Abnormal: Above high normal; Units: pg; Status: F Test: MEAN CORPUSCULAR HGB CONC; Value: 33.3; Range: 32.0-36.5; Units: g/dl; Status: F Test: RED CELL DISTRIBUTION WIDTH; Value: 14.2; Range: 11.5-14.5; Units: %; Status: F Test: PLATELET COUNT, AUTOMATED; Value: 194; Range: 150-450; Units: k/mm3; Status: F Radiology Order: Chest, 1 View Test: Chest, 1 View REASON FOR EXAMINATION: wkness; AP PORTABLE CHEST: 08/09/2016 at 4:56 p.m.:; ; Comparison: PA and lateral chest 04/26/2016, 03/04/2016.; ; Clinical history: Weakness.; ; Findings. Dual lead pacer over the left upper chest with leads in the right; atrium and right ventricle. Sternotomy wires are again seen. Surgical clips in; the mediastinum from prior CABG noted. There is left ventricular configuration; of the heart. I see no vascular redistribution or pulmonary edema. Some; atelectatic change. Retrocardiac left lower lobe suspected with poor; visualization of the diaphragm. The right lung base was clear. The aorta is; calcified at the arch, minimally tortuous with aneurysm. Airway intact. Bones; demineralized.; ; Impression:; ; 1. Cardiomegaly with left ventricular enlargement but no vascular redistribution,; pulmonary edema or definite effusion.; ; 2. Loss of definition left diaphragm may reflect some basilar atelectatic change; left lower lobe.; ; 3. 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 ml 19:56 Condition: stable. No special radiology studies were completed. cf2 21:03 Discharge Assessment: Patient awake, alert and oriented x 3. No cognitive and/or cf2 functional deficits noted. Patient verbalized understanding of disposition instructions. Patient awake and alert. patient administered narcotics - no. The following High Risk Discharge criteria are identified: None. Admitted ER admission. 08/10 18:35 Patient left the ED. srm Signatures: Dispatcher [employer] EDOK Malvin Johnson MD MD ml Daly, Erum, Drying Room Operator Unit lbd Pepe Dennison,RN RN ms2 Marie Fitzgerald, RN RN srm Nails, Lizy, RN RN Radhames Rubin, PRABHA RN cz Kash, Amina, PSA PSA rb Carleen, Maurisio, PSA PSA jl Jacob, Lizy, PSA PSA ms Joi, Sanjuana, Reg Reg gb Lukas, Silvia, Drying Room Operator Unit ml3 Jammie Victor RN RN jo3 Ayesha Irizarry RN RN hs1 Dixie Leslie, CLIENT TECHNICAL PROFESSIONAL CLIENT TECHNICAL PROFESSIONAL ct3 Mary Arrieta, CLIENT TECHNICAL PROFESSIONAL CLIENT TECHNICAL PROFESSIONAL jlf Cindy Ahuja, CLIENT TECHNICAL PROFESSIONAL CLIENT TECHNICAL PROFESSIONAL rs6 Nikki Johnson Christina,RN RN cf2 Corrections: (The following items were deleted from the chart) 08/09 18:06 16:33 BP 142 / 69; Pulse 69bpm; Resp 18bpm; Pulse Ox 97% RA; 73.48 kg Reported; Height hs1 5 ft. 8 in. Reported; BMI: 24.6; Pain 2/10; hs1 08/10 12:53 08/09 17:21 Home Meds: lacosamide 150 mg oral tab 1 tab 2 times per day; hs1 ms2 08/10 11:53 08/09 17:21 Home Meds: levetiracetam 750 mg oral tab 1 tab 2 times per day; hs1 ms2 08/10 11:53 08/09 17:21 Home Meds: venlafaxine 75 mg oral cp24 1 cap once daily; hs1 ms2 08/10 11:53 08/09 17:21 Home Meds: zolpidem 5 mg Oral tab 1 tab once daily; hs1 ms2 Chart Complete MTDD
--- NOTE | 2016-08-12 19:36 | EDDOCDS ---
Physician Documentation [facility] Name: Zion Mack Age: 81 yrs Sex: Male : 1935 Arrival Date: 08/09/2016 Time: 16:14 Bed Admit Hold Private MD: Wesly Lin H. Disposition: 08/09/16 18:11 Hospitalization ordered by Ruba Sánchez for Inpatient Admission. Preliminary diagnosis are Parkinson's disease, Weakness. - Bed requested for 4 [place]. - Status is Inpatient Admission. 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 - Problem is new. - Symptoms are unchanged. Historical: - Allergies: Buckwheat; egg whites; PENICILLINS (Swelling); raw fruits; - Home Meds: 1. ammonium lactate 12 % topical crea as needed 2. levothyroxine 125 mcg Oral cap 1 cap once daily 3. potassium chloride 20 mEq Oral cpER 1 tab 2 times per day 4. amiodarone 200 mg Oral tab 1 tab once daily 5. aspirin 81 mg Oral tab 1 tab once daily 6. atorvastatin 10 mg oral tab 1 tab once daily 7. Lumigan 0.03 % Opht drop 1 drop once daily 8. brimonidine-timolol 0.2-0.5 % ophthalmic drop 1 drop every 12 hours 9. captopril 12.5 mg Oral tab 0.5 tab 2 times per day 10. clobetasol 0.05 % Topical crea 11. Fish Oil 1,000 mg Oral cap 12. Lasix 40 mg Oral tab 1 tab once daily 13. multivitamin oral cap 1 tablet daily 14. Flomax 0.4 mg Oral cp24 1 cap once daily 15. cyanocobalamin-salcaprozat sod 1,000-100 mcg-mg oral tab 16. lacosamide 150 mg oral tab 1 tab 2 times per day 17. levetiracetam 750 mg oral tab 1 tab 2 times per day 18. venlafaxine 75 mg oral cp24 1 cap once daily 19. zolpidem 5 mg Oral tab 1 tab once daily - PMHx: a fib; CAD; CHF; Diabetes - IDDM: controlled; Glaucoma; Hypercholesterolemia; Hypertension; Myocardial infarction; Non-Hodgkin's Lymphoma; - PSHx: Carotid surgery; CABG; Cardiac stents; laser surgery to eyes; Pacemaker Insertion; - Social history: Smoking status: Patient states former smoker of tobacco. No barriers to communication noted, The patient speaks fluent Chinese, Speaks appropriately for age. - Family history: Not pertinent. - : The pt / caregiver states he / she is not on anticoagulants. Home medication list is obtained from a discharge med list. - Exposure Risk Screening:: None identified. Vital Signs: 08/09 16:33 BP 142 / 69; Pulse 69; Resp 18; Temp 97.9; Pulse Ox 97% on R/A; Weight 73.48 kg / 162 hs1 lbs (R); Height 5 ft. 8 in. (172.72 cm) (R); Pain 2/10; 16:33 Body Mass Index 24.63 (73.48 kg, 172.72 cm) hs1 MDM: 16:37 IV Saline Lock ordered. ml 16:38 CBC with Diff Ordered. EDMS 16:38 MED Profile Ordered. EDMS 16:38 Liver Profile Ordered. EDMS 16:38 UA Ordered. EDMS 16:38 Ammonia ([place] Tube on Ice, Not Pea Green) Ordered. EDMS 16:38 CIP Ordered. EDMS 16:38 Troponin Ordered. EDMS 16:38 Urine Culture Ordered. EDMS 16:39 Chest, 1 View Ordered. EDMS 16:39 ECG WITH READING ER PHYS+CARDIAG ordered. EDMS 17:26 DIFFERENTIAL NO CHARGE Ordered. EDMS 17:26 PLATELET ESTIMATE Ordered. EDMS 17:40 CBC with Diff Reviewed. ml 17:40 MED Profile Reviewed. ml 17:40 Liver Profile Reviewed. ml 17:40 CIP Reviewed. ml 17:40 Ammonia ([place] Tube on Ice, Not Pea Green) Reviewed. ml 17:40 Troponin Reviewed. ml 17:40 PLATELET ESTIMATE Reviewed. ml 18:01 Financial registration complete. gjb 18:03 [facility] Payment Agreement was scanned into MyScreen and attached to record. gjb 18:13 Admission / Observation Status ordered. EDMS 18:13 NO ADDED SALT DIET ordered. EDMS 18:15 PHYSICAL THERAPY EVAL & TREAT ordered. EDMS 19:34 BASIC METABOLIC PROFILE Ordered. EDMS 19:34 COMPLETE BLOOD COUNT Ordered. EDMS 19:45 Admission Orders was scanned into MyScreen and attached to record. rs6 08/10 11:47 Other: HINN Letter was scanned into MyScreen and attached to record. jl 13:37 T-Sheet-- Draft Copy was scanned into MEDHOST and attached to record. gb 14:19 Admission / Observation Status ordered. EDWI 08/11 12:50 Radiology Report was scanned into MEDHOST and attached to record. gb 12:50 Other: MOLST was scanned into MEDHOST and attached to record. gb 12:50 Other: HEALTHCARE PROXY was scanned into MEDHOST and attached to record. gb Signatures: Dispatcher MedHost EDWI Malvin Johnson MD MD ml Sobkiewicz, MicheleRN RN ms2 Marie Fitzgerald RN RN srm Carleen, Maurisio, PSA PSA jl Sanjuana Tamez, Reg Reg Ayesha Irizarry RN RN hs1 Bambi Antoine RN RN sls2 Cindy Ahuja, JHONNY GLAZIER [employer]ASS rs6 Nikki Johnson The chart was reviewed and I authenticate all verbal orders and agree with the evaluation and treatment provided.Corrections: (The following items were deleted from the chart) 08/10 12:53 08/09 17:21 Home Meds: lacosamide 150 mg oral tab 1 tab 2 times per day; hs1 ms2 08/10 12:53 08/09 17:21 Home Meds: levetiracetam 750 mg oral tab 1 tab 2 times per day; 1 ms2 08/10 12:53 08/09 17:21 Home Meds: venlafaxine 75 mg oral cp24 1 cap once daily; hs1 ms2 08/10 12:53 08/09 17:21 Home Meds: zolpidem 5 mg Oral tab 1 tab once daily; 1 ms2 Attachments: 18:03 [facility] Payment Agreement gjb 19:45 Admission Orders rs6 13:37 T-Sheet-- Draft Copy gb Chart Complete MTDD
[2016-08-12] MEDS: TAMSULOSIN 0.4 MG CAP PO SCH (21:32)
[2016-08-12] MEDS: ATORVASTATIN 10 MG TAB PO SCH (21:33)
[2016-08-12] MEDS: zolPIDEM TARTRATE 5 MG TAB PO SCH (21:33)
[2016-08-12 22:00] VITALS: BP 121/56
[2016-08-13] MEDS: HEPARIN SOD (PORCINE) 5000 UNITS/ML VIAL SC SCH ×3 (05:38→21:07)
[2016-08-13] MEDS: LEVOTHYROXINE 0.112 MG TAB (112 MCG) PO SCH (05:38)
[2016-08-13 06:00] VITALS: BP 135/61
--- NOTE | 2016-08-13 09:47 | REP ---
Clinical: Spinal stenosis. Technique: Axial noncontrast images from the skull base to the thoracic inlet with coronal and sagittal re-formations. Comparison: 08/06/2015. Findings: Alignment and lordosis is essentially stable and unchanged. There is no evidence for acute fracture / compression injury or subluxation. Moderate to advanced multilevel degenerative disc osteophyte complexes are again identified and remain stable compared to prior CT dated 08/06/2015. Findings include right posterolateral osteophyte and hypertrophic facet changes at the C3-4 level causing foraminal narrowing along with hypertrophic facet changes at the C4-5, C5-6 again demonstrating predominant right-sided neural foramen narrowing. Most advanced degenerative changes are noted at the C6-7 level which includes anterior and posterior osteophytes with endplate sclerosis and considerable disc space narrowing along with suspected posterior disc bulge and hypertrophic facet changes which cause mild to moderate bilateral neural foraminal as well as canal stenosis. The prevertebral soft tissues are normal. Impression: Moderate to advanced multilevel degenerative changes including canal stenosis and bilateral neural foraminal narrowing at C6-7 as well as predominant right-sided neural foraminal narrowing suggested at the C3-4 and to a lesser extent C4-5 and C5-6. These findings appear relatively stable compared to 08/06/2015 and likely similar to MRI findings dated 08/07/2015. There is no evidence for acute fracture / compression injury or subluxation. Signed by Gonzalo Alarcon MD 08/13/2016 09:39 A
[2016-08-13] MEDS: VENLAFAXINE **XR** 75MG CAPSULE PO SCH (10:11)
[2016-08-13] MEDS: MULTIVITAMINS/MINERALS THERAP 1 TAB PO SCH (10:11)
[2016-08-13] MEDS: CAPTOpril 6.25 MG PER 1/2 TABLET PO SCH ×2 (10:12→21:06)
[2016-08-13] MEDS: FUROSEMIDE 40 MG TAB PO SCH (10:12)
[2016-08-13] MEDS: SINEMET 25-100 MG TAB PO SCH ×4 (10:12→21:06)
[2016-08-13] MEDS: levETIRAcetam 250MG TABLET (KEPPRA) PO SCH ×2 (10:12→21:04)
[2016-08-13] MEDS: ASPIRIN 81 MG CHEW TABLET PO SCH (10:12)
[2016-08-13] MEDS: AMIODARONE 200 MG TAB (PACERONE) PO SCH (10:12)
[2016-08-13] MEDS: OMEGA-3 1050MG CAPSULE PO SCH ×2 (10:12→21:06)
[2016-08-13] MEDS: LACOSAMIDE 50 MG TAB (VIMPAT) PO SCH ×2 (10:13→21:04)
[2016-08-13] MEDS: NYSTATIN 100,000 UNITS/GM TOPICAL PWD 15 GM TOP SCH ×2 (10:13→21:08)
[2016-08-13] MEDS: DORZOLAMIDE 2% OPHTH SOLN 10 ML BTL OU SCH ×2 (10:13→21:07)
[2016-08-13] MEDS ORDERED: LUMIGAN OU SCH (21:00)
[2016-08-13] MEDS: ATORVASTATIN 10 MG TAB PO SCH (21:04)
[2016-08-13] MEDS: TAMSULOSIN 0.4 MG CAP PO SCH (21:06)
[2016-08-13] MEDS: zolPIDEM TARTRATE 5 MG TAB PO SCH (21:06)
[2016-08-13] MEDS: COMBIGAN (PATIENT'S OWN MED) OU SCH (21:07)
[2016-08-13 22:00] VITALS: BP 116/60
[2016-08-14] MEDS: LEVOTHYROXINE 0.112 MG TAB (112 MCG) PO SCH (05:37)
[2016-08-14] MEDS: HEPARIN SOD (PORCINE) 5000 UNITS/ML VIAL SC SCH (05:37)
[2016-08-14 06:00] VITALS: BP 119/58
--- NOTE | 2016-08-14 08:36 | REP ---
Clinical: Gait disturbance. Spinal stenosis. Technique: Axial noncontrast images from T11 through mid sacrum with coronal and sagittal re-formations. Comparison: 06/08/2015. Findings: Alignment and lordosis maintained without evidence for acute fracture / compression injury or subluxation. Advanced multilevel degenerative disc osteophyte complexes noted throughout the visualized thoracolumbar spine. Findings include both anterior and posterior osteophytes along with endplate sclerosis, disc space narrowing, and hypertrophic facet changes. Findings appear to cause multilevel moderate canal stenosis as well as neural foraminal narrowing predominantly involving the L4-5 and L3-4 levels bilaterally. Incidental note is made of a 4 cm high density presumed complex right renal cyst. Impression: Moderate to advanced multilevel degenerative changes with suspected canal and neural foraminal stenosis. If the patient remains symptomatic consider MRI for further investigation Signed by Gonzalo Alarcon MD 08/14/2016 08:28 A
[2016-08-14] MEDS: NYSTATIN 100,000 UNITS/GM TOPICAL PWD 15 GM TOP SCH (09:00)
[2016-08-14 09:16] VITALS: BP 119/58
[2016-08-14] MEDS: AMIODARONE 200 MG TAB (PACERONE) PO SCH (09:16)
[2016-08-14] MEDS: levETIRAcetam 250MG TABLET (KEPPRA) PO SCH (09:16)
[2016-08-14] MEDS: MULTIVITAMINS/MINERALS THERAP 1 TAB PO SCH (09:16)
[2016-08-14] MEDS: VENLAFAXINE **XR** 75MG CAPSULE PO SCH (09:16)
[2016-08-14] MEDS: OMEGA-3 1050MG CAPSULE PO SCH (09:16)
[2016-08-14] MEDS: CAPTOpril 6.25 MG PER 1/2 TABLET PO SCH (09:16)
[2016-08-14] MEDS: ASPIRIN 81 MG CHEW TABLET PO SCH (09:17)
[2016-08-14] MEDS: SINEMET 25-100 MG TAB PO SCH ×2 (09:17→12:24)
[2016-08-14] MEDS: LACOSAMIDE 50 MG TAB (VIMPAT) PO SCH (09:17)
[2016-08-14] MEDS: FUROSEMIDE 40 MG TAB PO SCH (09:17)
[2016-08-14] MEDS: DORZOLAMIDE 2% OPHTH SOLN 10 ML BTL OU SCH (09:18)
[2016-08-14] MEDS: COMBIGAN (PATIENT'S OWN MED) OU SCH (09:18)
[2016-08-14] MEDS ORDERED: COLA100C PO (10:44)
[2016-08-14] MEDS ORDERED: CARB25TA PO (10:44)
--- NOTE | 2016-08-14 16:17 | DSES ---
DATE OF ADMISSION: 08/10/2016 DATE OF DISCHARGE: 08/14/2016 DISCHARGE DIAGNOSIS: Social admission. SECONDARY DIAGNOSES: 1. Parkinson's disease with falls. 2. Atrial fibrillation. 3. Coronary artery disease. 4. Congestive heart failure. 5. Diabetes. 6. Glaucoma. 7. Hypercholesterolemia. 8. Hypertension. 9. Non-Hodgkin's lymphoma. 10. Carotid endarterectomy. HISTORY OF PRESENT ILLNESS: The patient had reportedly presented to his oncologist's office with very extreme difficulty with walking, requiring a two person assist for the last two weeks, and for the past six months, he has been having a fall every month. At the time of him being evaluated by his medical oncologist at [facility], there was concern for relapse for lymphoma and as such he was admitted to observation service at [facility]. There, he was evaluated and felt that he was not having any relapse of his lymphoma. He was seen by a neurologist and diagnosed with Parkinson's disease. However, it appears as though the patient was not started on any medication. He remained there an additional night due to the weather, but the following day he was taken home to the care of his family. Upon the arrival home, the patient's family stated that they could not take care of him, he was requiring too much assistance, and as such they have dropped him off at the emergency room here at [facility]. HOSPITAL COURSE: The patient was admitted to the medical/surgical service, and as he had not been started on any medications and it was a new diagnosis, the patient was seen by Dr. Candelaria of neurology who started the patient on Sinemet. The patient was seen by physical therapy and cleared by physical therapy. He was unable to obtain an MRI secondary to him having a pacemaker. He did have a CT scan of his spine which revealed multilevel degenerative changes and canal stenosis forming on the narrowing at C6-7 but were stable to a previous examination from 08/06/2015. The patient had a lumbar spine CT that revealed degenerative changes, suspected canal and neural foraminal stenosis. The patient did improve greatly with Sinemet. He was seen by physical therapy and he improved to the point that he was cleared and the patient's family felt comfortable taking him home. At this time, the patient is being discharged home to the care of his family. SUBJECTIVE: Today, the patient reports he is feeling much better. He tells me that he is much more steady on his feet. He denies any chest pain, shortness of breath, fevers, chills, nausea, vomiting, or diarrhea. OBJECTIVE: VITAL SIGNS: Temperature 98, pulse 70, respiratory rate 20, blood pressure 119/58, oxygen saturation 93% on room air. GENERAL: He is a very pleasant, elderly, man sitting in the recliner. He does not appear to be in any acute distress. He is actually not exhibiting any resting tremor when I enter the room. NEUROLOGIC: Cranial nerves II-XII are grossly intact. HEENT: He has a masked-like face. Moist mucous membranes. CARDIOVASCULAR: S1, S2, regular. RESPIRATORY: Clear. ABDOMEN: Benign. He does have cogwheel rigidity. LABORATORY STUDIES: WBC 4.9, hemoglobin 10.5, hematocrit 31.6, platelet count 194. Chemistry panel: Sodium 143, potassium 4.0, chloride 104, bicarbonate 29, BUN 23, creatinine 0.8. The patient had an elevated B12 level. B1 level is currently pending. Serum copper level is pending. He had a UA which was unremarkable. Urine culture was negative. IMAGING STUDIES: As outlined above. ASSESSMENT AND PLAN: This is an 81-year-old man who was a social admission due to family inability to care for him. The patient improved with treatment of Sinemet. He is being with a new prescription for this. He is to followup with his primary care provider within one week and neurology within two weeks. His activity is as tolerated. His diet is as prior to admission. He is to return to the emergency room (ER) if symptoms worsen. MEDICATIONS AT THE TIME OF DISCHARGE: - carbidopa/levodopa 25/100 one tablet four times a day - Colace 100 mg twice a day - amiodarone 200 mg daily - ammonium lactate one dose topically daily - aspirin 81 mg daily - atorvastatin 10 mg at bedtime - Lumigan one drop in each eye daily at bedtime - Captopril 6.25 mg twice a day - Combigan in each eye twice a day - B12 is stopped - dorzolamide one drop in each eye twice a day - fish oil 1000 mg twice a day - Lasix 40 mg daily - Vimpat 150 mg twice a day - Keppra 750 mg twice a day - Levoxyl 112 mcg daily - multivitamin one tablet daily - potassium chloride 20 mEq daily - Flomax 0.4 mg at bedtime - venlafaxine 75 mg daily - Ambien 5 mg at bedtime Greater than 30 minutes spent organizing a safe disposition.
== END 2016-08-14 12:31 | disposition home or self-care (01) | DRG 57 ==
LOC: M ED 16:14 → M ED INP 18:09 → OBSVTOIN 08-10 14:18 → M MSPAV 08-10 18:37
PROVIDERS: ADMIT General Practice; ATTEND Internal Medicine
DX: G20 Parkinson's disease (principal); G40.109 Localization-related (focal) (partial) symptomatic epilepsy and epileptic syndromes with simple partial seizures, not intractable, without status epilepticus; G91.2 (Idiopathic) normal pressure hydrocephalus; R29.6 Repeated falls; I50.9 Heart failure, unspecified; M48.02 Spinal stenosis, cervical region; M48.06 Spinal stenosis, lumbar region; E11.9 Type 2 diabetes mellitus without complications; I25.10 Atherosclerotic heart disease of native coronary artery without angina pectoris; I48.91 Unspecified atrial fibrillation; I10 Essential (primary) hypertension; H40.9 Unspecified glaucoma; E03.9 Hypothyroidism, unspecified; G62.0 Drug-induced polyneuropathy; D64.9 Anemia, unspecified; E78.00 Pure hypercholesterolemia, unspecified; R26.9 Unspecified abnormalities of gait and mobility; Z85.72 Personal history of non-Hodgkin lymphomas; Z79.82 Long term (current) use of aspirin; Z98.61 Coronary angioplasty status; Z95.0 Presence of cardiac pacemaker; I25.2 Old myocardial infarction; Z88.0 Allergy status to penicillin; Z91.012 Allergy to eggs; Z91.018 Allergy to other foods; Z87.891 Personal history of nicotine dependence; Z79.4 Long term (current) use of insulin; T45.1X5A Adverse effect of antineoplastic and immunosuppressive drugs, initial encounter; Z74.2 Need for assistance at home and no other household member able to render care

== ENCOUNTER → 2016-10-04 | Day surgery (SDC) | payer MEDICARE, OTHER ==
[~2016-10-04] VITALS: Ht 175.3 cm; Wt 73.5 kg
[~2016-10-04] MED LIST changes: +AMIO20TA PO; +AMMO12CR4 TOP; +BETAMETHASONE SOLUSPAN 6MG/ML INJ 5ML (J0702) As Ordered ONE; +CAPT125TA PO; +CARB25TA PO; +FISH1000 PO; +HEALON DUET (HEALON 10MG/ML 0.55ML & HEALON ENDOCOAT 30MG/ML 0.85ML) As Ordered ONE; +LEVE750T5 PO; +LEVO112T25 PO; +LIDOCAINE 2% W/EPIN INJ 20ML **PRES FREE As Ordered ONE; +LIDOCAINE 4% INJ 5 ML AMP OU ONE; +LIDOCAINE PRES-FREE 2% 10ML AMP As Ordered ONE; +MIDAZOLAM INJ 2 MG/2 ML VIAL (J2250) As Ordered ONE; +PHENYLEPHRINE 0.5% NASAL SPRAY 15 ML As Ordered ONE; +PHENYLEPHRINE 2.5% OPHTH SOL 2ML As Ordered ONE; +POTA20TA PO; +POVIDONE-IODINE 5% OPHTH PREP SOL 30ML As Ordered ONE; +TOBRADEX OPHTH OINT 3.5 GM As Ordered ONE; +TOBRAMYCIN INJ 80 MG/2 ML VIAL (J3260) As Ordered ONE; +VENL75TA3 PO; +VIMP150T PO; +VITA10002 PO; +fentaNYL 100 MCG/2 ML INJECTION (J3010) As Ordered ONE; +mitoMYcin (FOR OPHTHALMIC USE) 0.3MG/1ML SYRINGE IN NaCl (J7999) As Ordered ONE; +mitoMYcin (FOR OPHTHALMIC USE) 0.3MG/1ML SYRINGE IN NaCl (J7999) XX ONE
[2016-10-04 09:00] VITALS: BP 132/68
--- NOTE | 2016-10-05 08:20 | RO ---
DATE OF PROCEDURE: 10/04/2016 PREPROCEDURE DIAGNOSIS: Glaucoma, left eye. POSTPROCEDURE DIAGNOSIS: Glaucoma, left eye. PROCEDURE: Placement of Express shunt glaucoma drainage device and endocytophotocoagulation. SURGEON: Tobias Daniels MD MONEY ORDER CLERK: None. COMPLICATIONS: None. DESCRIPTION OF PROCEDURE: The patient was brought to the operating room and laid in supine position. The eye was prepped and draped in a sterile fashion for ophthalmic surgery, following which a lid speculum was placed. Subconjunctival injection of 2% lidocaine with 1:100,000 epinephrine was then given in the superior and supratemporal subconjunctival space. Conjunctival peritomy was then done over the previously placed Express shunt but there was excessive bleeding and friable conjunctiva, so it was decided to go more temporally. After conjunctival peritomy, subconjunctival dissection was done superiorly, medially and laterally. Hemostasis was obtained as necessary. Mitomycin 0.3% was then placed in the scleral bed for 2 minutes, followed by copious irrigation with balanced salt solution. A limbal based rectangular scleral flap was then made with the help of the straight and curved crescent blades. Anterior chamber was entered underneath the flap at the limbus with a 27 gauge needle, which was then subsequently withdrawn. Through the same tract, Express shunt was placed, draped over by the scleral flap and conjunctival closed using #8-0 Vicryl and #10-0 nylon sutures. No leaks were noted. Superonasal clear corneal incision was made with a 2.5 mm keratome. Healon was injected into the ciliary sulcus to visualize the ciliary process under video monitor and with the help of the EndoProbe set at 0.25 to 0.35 milliwatts, endocytophotocoagulation was done at 280 degrees with moderate response because of previously sclerosed but good response was noted in most areas. The probe was retracted. Excess Healon aspirated. Wound hydrated. Eye patched with TobraDex ointment. Alvarenga Shield applied. The patient was returned to the recovery room.
== END | disposition home or self-care (01) ==
LOC: M SDC 06:02
PROVIDERS: ATTEND Ophthalmology
DX: H40.812 Glaucoma with increased episcleral venous pressure, left eye (principal); I48.91 Unspecified atrial fibrillation; I10 Essential (primary) hypertension; Z98.61 Coronary angioplasty status; I25.2 Old myocardial infarction; I50.9 Heart failure, unspecified; E78.5 Hyperlipidemia, unspecified; E03.9 Hypothyroidism, unspecified; Z85.828 Personal history of other malignant neoplasm of skin; Z88.0 Allergy status to penicillin; Z79.82 Long term (current) use of aspirin; Z85.79 Personal history of other malignant neoplasms of lymphoid, hematopoietic and related tissues; Z79.899 Other long term (current) drug therapy
CPT/HCPCS: 66183; 66711; C1783; J2250; J3010; J7999

== ENCOUNTER → 2016-12-20 | Outpatient (REF) | payer MEDICARE, OTHER ==
[~2016-12-20] MED LIST changes: -BETAMETHASONE SOLUSPAN 6MG/ML INJ 5ML (J0702) As Ordered ONE; -COLA100C PO; +COLA100C3 PO; -HEALON DUET (HEALON 10MG/ML 0.55ML & HEALON ENDOCOAT 30MG/ML 0.85ML) As Ordered ONE; -LIDOCAINE 2% W/EPIN INJ 20ML **PRES FREE As Ordered ONE; -LIDOCAINE 4% INJ 5 ML AMP OU ONE; -LIDOCAINE PRES-FREE 2% 10ML AMP As Ordered ONE; -MIDAZOLAM INJ 2 MG/2 ML VIAL (J2250) As Ordered ONE; -PHENYLEPHRINE 0.5% NASAL SPRAY 15 ML As Ordered ONE; -PHENYLEPHRINE 2.5% OPHTH SOL 2ML As Ordered ONE; -POVIDONE-IODINE 5% OPHTH PREP SOL 30ML As Ordered ONE; -TOBRADEX OPHTH OINT 3.5 GM As Ordered ONE; -TOBRAMYCIN INJ 80 MG/2 ML VIAL (J3260) As Ordered ONE; -fentaNYL 100 MCG/2 ML INJECTION (J3010) As Ordered ONE; -mitoMYcin (FOR OPHTHALMIC USE) 0.3MG/1ML SYRINGE IN NaCl (J7999) As Ordered ONE; -mitoMYcin (FOR OPHTHALMIC USE) 0.3MG/1ML SYRINGE IN NaCl (J7999) XX ONE
== END ==
LOC: M LAB REF 16:36
PROVIDERS: ATTEND Surgery
DX: C44.622 Squamous cell carcinoma of skin of right upper limb, including shoulder (principal)

== ENCOUNTER → 2017-02-12 | Outpatient (CLI) | payer MEDICARE, OTHER ==
[~2017-02-12] MED LIST changes: +AMIO200T FT; +AMIO200T PO; -AMIO20TA FT; -AMIO20TA PO; +CIPR-249 PO; -CIPR500T89 PO; -COLA100C3 PO; +COLA100C5 PO; -KEPP1000 PO; +KEPP10002 PO; -METF500T PO; +METF500T13 PO; -NYST100024 TOP; +NYST1POW9 TOP; -SENO8.6T2 PO; +SENO8.6T5 PO
[2017-02-12 20:04] LABS: ALBUMIN 3.6 GM/DL (3.2-5.2); ALBUMIN/GLOBULIN RATIO 1.06 (1.00-1.93); ALKALINE PHOSPHATASE 185 U/L (45-117); ALT/SGPT 21 U/L (12-78); ANION GAP 11 MEQ/L (8-16); AST/SGOT 20 U/L (15-37); BILIRUBIN,TOTAL 0.2 MG/DL (0.2-1.0); BLOOD UREA NITROGEN 23 MG/DL (7-18); CALCIUM LEVEL 8.8 MG/DL (8.8-10.2); CARBON DIOXIDE LEVEL 27 MEQ/L (21-32); CHLORIDE LEVEL 101 MEQ/L (98-107); CREATININE FOR GFR 1.15 MG/DL (0.70-1.30); GLOMERULAR FILTRATION RATE > 60.0 (>35); GLUCOSE, FASTING 180 MG/DL (83-110); POTASSIUM SERUM 4.2 MEQ/L (3.5-5.1); SODIUM LEVEL 139 MEQ/L (136-145)
[2017-02-12 21:21] LABS: MEAN CORPUSCULAR HEMOGLOBIN 34.6 pg (27.0-33.0); MEAN CORPUSCULAR HGB CONC 33.1 g/dl (32.0-36.5); MEAN CORPUSCULAR VOLUME 104.6 fl (80.0-96.0); RED CELL DISTRIBUTION WIDTH 13.6 % (11.5-14.5)
== END ==
LOC: M WUC 16:15
PROVIDERS: ATTEND Physician Assistant
DX: I50.32 Chronic diastolic (congestive) heart failure (principal); I48.0 Paroxysmal atrial fibrillation

== ENCOUNTER → 2017-03-22 | Outpatient (REF) | payer MEDICARE, OTHER | LOC: M LAB REF 13:39 | PROVIDERS: ATTEND Surgery | DX: C44.622 Squamous cell carcinoma of skin of right upper limb, including shoulder (principal) ==

== ENCOUNTER 2017-07-05 12:54 | Emergency (ER) | payer MEDICARE, OTHER ==
[~2017-07-05] VITALS: Ht 172.7 cm; Wt 75.0 kg
[2017-07-05] MEDS ORDERED: LEVO125T41 PO (13:06)
[2017-07-05] MEDS ORDERED: VITA200015 PO (13:06)
[2017-07-05] MEDS ORDERED: CAPTOpril 6.25 MG PER 1/2 TABLET PO ONE (13:30)
[2017-07-05] MEDS ORDERED: ALBUTEROL SULFATE 2.5 MG/0.5 ML INH NEB SOLN NEB ONE (13:30)
[2017-07-05 13:59] LABS: MEAN CORPUSCULAR HEMOGLOBIN 33.1 pg (27.0-33.0); MEAN CORPUSCULAR HGB CONC 32.4 g/dl (32.0-36.5); MEAN CORPUSCULAR VOLUME 102.2 fl (80.0-96.0); PLATELET COUNT, AUTOMATED 249 10^3/uL (150-450); RED CELL DISTRIBUTION WIDTH 13.4 % (11.5-14.5); WHITE BLOOD COUNT 12.1 10^3/uL (4.0-10.0)
--- NOTE | 2017-07-05 14:05 | REP ---
Chest two views HISTORY: Cough Comparison: 08/09/2016 Increased density is present in the left lower lobe consistent with atelectasis or infiltrate. The right lung is clear. The cardiac silhouette is enlarged. The pulmonary vasculature is normal in appearance. The bony structure is intact. A cardiac pacemaker is present. IMPRESSION: 1. Left lower lobe atelectasis or infiltrate. 2. Cardiomegaly. Signed by Zion Preston MD 07/05/2017 01:57 P
[2017-07-05 14:11] VITALS: BP 173/79
[2017-07-05 14:14] VITALS: BP 142/66
[2017-07-05] MEDS ORDERED: ALBU17IN2 INH (14:16)
[2017-07-05] MEDS ORDERED: LEVA1TAB2 PO (14:16)
[2017-07-05 14:25] LABS: ANION GAP 10 MEQ/L (8-16); BLOOD UREA NITROGEN 23 MG/DL (7-18); CALCIUM LEVEL 8.6 MG/DL (8.8-10.2); CARBON DIOXIDE LEVEL 29 MEQ/L (21-32); CHLORIDE LEVEL 100 MEQ/L (98-107); CREATININE FOR GFR 1.13 MG/DL (0.70-1.30); GLOMERULAR FILTRATION RATE > 60.0 (>35); GLUCOSE, FASTING 121 MG/DL (83-110); POTASSIUM SERUM 4.4 MEQ/L (3.5-5.1); SODIUM LEVEL 139 MEQ/L (136-145)
--- NOTE | 2017-07-06 07:05 | ECGEPIP ---
Stationary ECG Study [facility] - ED Test Date: 2017-07-05 Pat Name: KALEY WAGNER Department: Room: - Gender: M Shook Splicer: [facility] : 1935 Requested By: Shamar Simpson Order Number: [id number] Reading MD: Jessica Lora Measurements Intervals [place] Rate: 76 P: 138 DE: 302 QRS: -27 QRSD: 95 T: 49 QT: 400 QTc: 450 Interpretive Statements ELECTRONIC ATRIAL PACEMAKER BORDERLINE LEFT AXIS DEVIATION NONSPECIFIC T-WAVE ABNORMALITY ABNORMAL RHYTHM ECG SINUS Electronically Signed On 07-06-2017 7:04:41 EST by Jessica Lora
== END 2017-07-05 14:27 | disposition home or self-care (01) ==
LOC: M ED 12:54
DX: J18.1 Lobar pneumonia, unspecified organism (principal); Z95.0 Presence of cardiac pacemaker; R94.31 Abnormal electrocardiogram [ECG] [EKG]; I51.9 Heart disease, unspecified; I10 Essential (primary) hypertension; E78.5 Hyperlipidemia, unspecified; E07.9 Disorder of thyroid, unspecified; Z95.1 Presence of aortocoronary bypass graft; I51.7 Cardiomegaly; Z87.891 Personal history of nicotine dependence; Z82.49 Family history of ischemic heart disease and other diseases of the circulatory system; Z79.82 Long term (current) use of aspirin; Z79.899 Other long term (current) drug therapy; Z91.012 Allergy to eggs; Z91.018 Allergy to other foods; Z88.0 Allergy status to penicillin; Z88.8 Allergy status to other drugs, medicaments and biological substances

== ENCOUNTER → 2017-08-20 | Outpatient (CLI) | payer MEDICARE, OTHER | LOC: M RAD 11:59 | DX: I51.7 Cardiomegaly (principal); I48.0 Paroxysmal atrial fibrillation | CPT/HCPCS: 71046 ==

== ENCOUNTER → 2018-05-01 | Outpatient (REF) | payer MEDICARE, OTHER | LOC: M LAB REF 13:55 | DX: H16.012 Central corneal ulcer, left eye (principal) | CPT/HCPCS: 87102 ==

== ENCOUNTER → 2018-06-18 | Outpatient (CLI) | payer MEDICARE, OTHER | LOC: M WUC 11:25 | DX: I48.0 Paroxysmal atrial fibrillation (principal) | CPT/HCPCS: 71046 ==

== ENCOUNTER → 2018-10-10 | Outpatient (REF) | payer MEDICARE, OTHER ==
[~2018-10-10] MED LIST changes: +ALBU17IN2 INH; -AMLO5TAB2 PO; +AMLO5TAB6 PO; +ASPI81CH40 PO; -ASPI81TA PO; -CARB25TA PO; +CARB25TA9 PO; +FLOM0.4C39 PO; -FLOM5CAP PO; +KLOR10TA76 PO; +KLOR20TA42 PO; -LASI20TA PO; +LASI20TA3 PO; +LEVA1TAB2 PO; +LEVO125T41 PO; -NIAC1TAB PO; +NIAC500T64 PO; -POTA10CA PO; -POTA20TA PO; -TIMO0.5S4 OU; +TIMO0.5S42 OU; +VITA200015 PO; -ZYLO300T4 PO; +ZYLO300T6 PO
[2018-10-15 00:09] LABS: LEVETIRACETAM (KEPPRA) 23.4 ug/mL (10.0-40.0)
[2018-10-15 08:06] LABS: LACOSAMIDE LEVEL 10.8 ug/mL (5.0-10.0)
== END ==
LOC: M LABNEURO 10:36
PROVIDERS: ATTEND Psychiatry & Neurology Neurology
DX: G40.909 Epilepsy, unspecified, not intractable, without status epilepticus (principal)

== ENCOUNTER → 2018-12-11 | Outpatient (CLI) | payer MEDICARE, OTHER ==
[~2018-12-11] MED LIST changes: -AMMO12CR4 TOP; +AMMO12CR7 TOP; -ASPI81CH PO; +ASPI81CH36 PO; -ASPI81CH40 PO; +ASPI81CH49 PO; +ERYT1OIN26 OU; -ERYT5OPO OU; +VENL-65 PO; -VENL75TA3 PO
--- NOTE | 2018-12-11 12:46 | REP ---
Chest two views HISTORY: Atrial fibrillation Comparison: 06/18/2018 The lungs are clear. The heart is normal in size. The pulmonary vasculature is normal in appearance. The bony structure is intact. A cardiac pacemaker is present. IMPRESSION: No acute disease. Electronically Signed by Zion Preston MD 12/11/2018 12:37 P
== END ==
LOC: M SMT 11:25
PROVIDERS: ATTEND Physician Assistant
DX: I48.0 Paroxysmal atrial fibrillation (principal)

== ENCOUNTER → 2019-02-24 | Outpatient (REF) | payer MEDICARE, OTHER ==
[~2019-02-24] MED LIST changes: +CYAN100049 PO; -VITA10002 PO
== END ==
LOC: M LAB REF 17:24
PROVIDERS: ATTEND Surgery
DX: C44.622 Squamous cell carcinoma of skin of right upper limb, including shoulder (principal)

== ENCOUNTER → 2019-03-04 | Outpatient (REF) | payer MEDICARE, OTHER ==
[2019-03-04 17:50] LABS: APPEARANCE, URINE CLEAR (CLEAR); BACTERIA, URINE AUTO NEGATIVE (NEGATIVE); BILIRUBIN, URINE AUTO NEGATIVE (NEGATIVE); BLOOD, URINE BLOOD NEGATIVE (NEGATIVE); COLOR, URINE YELLOW (YELLOW); GLUCOSE, URINE (UA) AUTO NEGATIVE (NEGATIVE); KETONE, URINE AUTO TRACE mg/dL (NEGATIVE); LEUKOCYTE ESTERASE, URINE AUTO TRACE (NEGATIVE); MUCUS, URINE SMALL (NEGATIVE); NITRITE, URINE AUTO NEGATIVE (NEGATIVE); PROTEIN, URINE AUTO NEGATIVE (NEGATIVE); RBC, URINE AUTO 1 /HPF (0-3); SPECIFIC GRAVITY URINE AUTO 1.013 (1.002-1.035); SQUAMOUS EPITHELIAL CELL UR AU 0 /HPF (0-6); UROBILINOGEN, URINE AUTO 0.2 mg/dL (0.0-2.0); WBC, URINE AUTO 7 /HPF (0-3)
== END ==
LOC: M SMT 16:50
PROVIDERS: ATTEND Nurse Practitioner Family
DX: R32 Unspecified urinary incontinence (principal)
CPT/HCPCS: 51798; 81001; 87086; G0463

== ENCOUNTER 2019-04-09 20:50 | Inpatient (IN) | payer MEDICARE, OTHER ==
[~2019-04-09] VITALS: Ht 172.7 cm; Wt 67.3 kg
[~2019-04-09 20:50] MED LIST changes: -ALBU17IN2 INH; +ASPI81CH32 PO; -ASPI81CH36 PO; +PROV108A INH
[2019-04-09] MEDS ORDERED: NS 1,000 ML IV ONE (21:45)
--- NOTE | 2019-04-09 22:34 | REPVR ---
EXAM: CT Head Without Contrast EXAM DATE/TIME: 04/09/2019 9:16 PM CLINICAL HISTORY: 83 years old, male; Injury or trauma; Fall; Initial encounter; Blunt trauma (contusions or hematomas) TECHNIQUE: Imaging protocol: Computed tomography of the head without contrast. Radiation optimization: All CT scans at this facility use at least one of these dose optimization techniques: automated exposure control; mA and/or kV adjustment per patient size (includes targeted exams where dose is matched to clinical indication); or iterative reconstruction. COMPARISON: CT Head without contrast 07/21/2016 8:24 AM FINDINGS: Brain: Mild to moderate generalized involutional and deep white matter microvascular ischemic changes. No acute intracranial hemorrhage or mass effect. No discrete geographic area of hypoattenuation to suggest territorial infarct identified at this time. Ventricles: No ventriculomegaly. Bones/joints: No acute fracture. Sinuses: Small amount of layering fluid/debris in the left sphenoidal sinus. Mastoid air cells: Visualized mastoid air cells are well aerated. Soft tissues: Unremarkable. IMPRESSION: No acute intracranial abnormality. Small amount of layering fluid/debris in the left sphenoidal sinus. Electronically signed by: Adrian Gómez On 04/09/2019 22:34:35 PM
--- NOTE | 2019-04-09 22:40 | REPVR ---
EXAM: CT Cervical Spine Without Contrast EXAM DATE/TIME: 04/09/2019 9:16 PM CLINICAL HISTORY: 83 years old, male; Injury or trauma; Fall; Initial encounter; Blunt trauma TECHNIQUE: Imaging protocol: Computed tomography images of the cervical spine without contrast. Radiation optimization: All CT scans at this facility use at least one of these dose optimization techniques: automated exposure control; mA and/or kV adjustment per patient size (includes targeted exams where dose is matched to clinical indication); or iterative reconstruction. COMPARISON: CT Spine,cervical w/o contrast 08/13/2016 9:05 AM FINDINGS: Vertebrae: No grossly displaced fractures or subluxations. Moderately advanced multilevel degenerative changes characterized by varying degrees of disc space narrowing/desiccation, endplate osteophytosis and facet hypertrophy. This is most prominent at C6-C7. Alignment is otherwise grossly preserved. Discs/Spinal canal/Neural foramina: The bony spinal canal is grossly patent. Soft tissues: Unremarkable. Lungs: Lung apices are normal. IMPRESSION: No displaced fractures or subluxations. Multilevel degenerative changes. Electronically signed by: Adrian Gómez On 04/09/2019 22:40:15 PM
[2019-04-09 22:50] LABS: BASO % 0.2 % (0.0-1.0); EOS # 0.1 10^3/uL (0.0-0.5); EOS % 1.3 % (0.0-3.0); HEMATOCRIT 36.7 % (42.0-52.0); HEMOGLOBIN 12.5 g/dl (13.5-17.5); LYMPH # 1.3 10^3/uL (1.5-5.0); LYMPH % 12.8 % (24.0-44.0); MEAN CORPUSCULAR HEMOGLOBIN 35.6 pg (27.0-33.0); MEAN CORPUSCULAR HGB CONC 34.1 g/dl (32.0-36.5); MEAN CORPUSCULAR VOLUME 104.6 fl (80.0-96.0); MONO # 0.9 10^3/uL (0.0-0.8); MONO % 8.8 % (0.0-5.0); NEUTROPHILS # 7.5 10^3/uL (1.5-8.5); NEUTROPHILS % 75.7 % (36.0-66.0); PLATELET COUNT, AUTOMATED 197 10^3/uL (150-450); RED BLOOD COUNT 3.51 10^6/uL (4.30-6.10)
[2019-04-09 23:01] LABS: INR 1.02; PARTIAL THROMBOPLASTIN TIME 21.9 SECONDS (25.0-38.4); PROTHROMBIN TIME 13.1 SECONDS (11.8-14.0)
[2019-04-09 23:20] LABS: ALT/SGPT 7 U/L (12-78); BILIRUBIN,DIRECT 0.1 MG/DL (0.0-0.2); BILIRUBIN,TOTAL 0.4 MG/DL (0.2-1.0); BLOOD UREA NITROGEN 17 MG/DL (7-18); CALCIUM LEVEL 8.4 MG/DL (8.8-10.2); CARBON DIOXIDE LEVEL 29 MEQ/L (21-32); CHLORIDE LEVEL 100 MEQ/L (98-107); CK-MB VALUE MASS 1.6 NG/ML (<3.6); CPK CREATINE PHOSPHOKINASE 33 U/L (39-308); CREATININE FOR GFR 0.91 MG/DL (0.70-1.30); FREE T4 1.88 NG/DL (0.76-1.46); GLOMERULAR FILTRATION RATE > 60.0 (>35); GLUCOSE, FASTING 121 MG/DL (70-100); MB/CK RELATIVE INDEX 4.85 (< OR =4); NT-PRO BNP 1266 PG/ML (<450); POTASSIUM SERUM 3.9 MEQ/L (3.5-5.1); SODIUM LEVEL 139 MEQ/L (136-145); TOTAL PROTEIN 5.8 GM/DL (6.4-8.2); TROPONIN I 0.05 NG/ML (< 0.10)
[2019-04-09] MEDS ORDERED: VIMP100T PO (23:39)
[2019-04-10] MEDS ORDERED: PREDOPD OS (00:35)
[2019-04-10] MEDS ORDERED: CARB25TA9 PO (00:35)
[2019-04-10] MEDS ORDERED: RASA1TAB PO (00:35)
[2019-04-10] MEDS ORDERED: ELID1CRE11 TOP (00:35)
[2019-04-10] MEDS ORDERED: BRIM1OPD OU (00:35)
[2019-04-10] MEDS ORDERED: ACETAMINOPHEN TAB 650MG DOSE (2X325MG) PO PRN (01:45)
[2019-04-10] MEDS ORDERED: MAALOX 30 ML SUSP *UDC PO PRN (01:45)
[2019-04-10] MEDS ORDERED: MOM 30ML SUSPENSION UDC PO PRN (01:45)
[2019-04-10 04:42] LABS: HEMATOCRIT 37.8 % (42.0-52.0); HEMOGLOBIN 12.8 g/dl (13.5-17.5); MEAN CORPUSCULAR HEMOGLOBIN 35.2 pg (27.0-33.0); MEAN CORPUSCULAR HGB CONC 33.9 g/dl (32.0-36.5); MEAN CORPUSCULAR VOLUME 103.8 fl (80.0-96.0); PLATELET COUNT, AUTOMATED 209 10^3/uL (150-450); RED BLOOD COUNT 3.64 10^6/uL (4.30-6.10); WHITE BLOOD COUNT 10.4 10^3/uL (4.0-10.0)
[2019-04-10 04:52] LABS: INR 1.03; PROTHROMBIN TIME 13.2 SECONDS (11.8-14.0)
[2019-04-10] MEDS: DOCUSATE SODIUM 100 MG CAP PO SCH ×3 (05:02→20:15)
[2019-04-10 05:15] LABS: ALBUMIN 2.9 GM/DL (3.2-5.2); ALT/SGPT 10 U/L (12-78); BILIRUBIN,TOTAL 0.3 MG/DL (0.2-1.0); BLOOD UREA NITROGEN 17 MG/DL (7-18); CALCIUM LEVEL 8.3 MG/DL (8.8-10.2); CARBON DIOXIDE LEVEL 28 MEQ/L (21-32); CHLORIDE LEVEL 101 MEQ/L (98-107); CREATININE FOR GFR 0.92 MG/DL (0.70-1.30); GLOMERULAR FILTRATION RATE > 60.0 (>35); GLUCOSE, FASTING 116 MG/DL (70-100); PHOSPHORUS LEVEL 3.5 MG/DL (2.5-4.9); SODIUM LEVEL 138 MEQ/L (136-145); TOTAL PROTEIN 5.7 GM/DL (6.4-8.2); TROPONIN I 0.04 NG/ML (< 0.10)
[2019-04-10 05:20] VITALS: BP 161/72
[2019-04-10] MEDS: HEPARIN SOD (PORCINE) 5000 UNITS/ML VIAL SC SCH ×3 (05:58→20:58)
--- NOTE | 2019-04-10 07:16 | REPVR ---
EXAM: US Duplex Bilateral Extracranial Arteries EXAM DATE/TIME: 04/10/2019 6:28 AM CLINICAL HISTORY: 83 years old, male; Syncope and collapse TECHNIQUE: Imaging protocol: Real-time Duplex ultrasound scan of the Bilateral carotid and vertebral arteries combining chau scale, color Doppler and spectral waveform analysis. COMPARISON: CT Head without contrast 04/09/2019 9:14 PM FINDINGS: Right common carotid artery: No significant plaque. There is a normal waveform in the right common carotid artery with peak velocity is of 73 cm/s proximally, 69 cm/s in the mid portion, and 95 cm/s distally. Right internal carotid artery: Visibility of the mid right internal carotid artery is somewhat limited. There is no evidence of significant stenosis in the right internal carotid artery. No significant plaque. The peak systolic velocity is 73 cm/s proximally, 51 cm/s in the midportion, and 58 cm/s distally. Right ICA/CCA ratio: The right ICA/CCA ratio is 0.76. Right external carotid artery: There is a normal waveform in the right external carotid artery with a peak velocity of 76 cm/s. Right vertebral artery: There is antegrade flow in the right vertebral artery. Left common carotid artery: No significant plaque. In Normal arterial waveforms are seen in the left common carotid artery with a peak velocity of 127 cm/s proximally, 117 cm/s midportion, and 119 cm/s distally. Left internal carotid artery: Visibility of the distal left internal carotid artery is somewhat limited. No significant plaque. There is no evidence of significant stenosis. Peak systolic velocity is 120 cm/s proximally, 72 cm/s in the midportion, and 49 cm/s distally. Left ICA/CCA ratio: The left ICA/CCA ratio is 0.94. Left external carotid artery: There is a normal waveform in the left external carotid artery, with a peak velocity of 139 cm/s. Left vertebral artery: Left vertebral artery could not be visualized. IMPRESSION: No significant plaque formation. No evidence of stenosis. COMMENT: Carotid Stenosis Reference using SRU criteria: Mild: less than 50% stenosis. ICA PSV is less than 125 cm/second and plaque or intimal thickening is visible. Moderate: 50-69% stenosis. ICA PSV is 125 to 230 cm/second and plaque is visible. Severe: 70-94% stenosis. ICA PSV is more than 230 cm/second and visible plaque and lumen narrowing are seen. Near occlusion: 95-99% stenosis. ICA PSV is variable and significant plaque and luminal narrowing are seen. Occluded: 100% stenosis. No flow identified. Electronically signed by: Jammie Pugh On 04/10/2019 07:16:24 AM
--- NOTE | 2019-04-10 08:16 | ECGEPIP ---
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
--- NOTE | 2019-04-10 09:01 | REP ---
Portable AP chest, one-view Indication: Fall. Comparison: Two-view chest of 12/11/2018. Findings: The cardiomediastinal silhouette is normal in appearance for size. There is normal pulmonary vascularity. There is no focal consolidation. A left-sided anterior chest wall pacemaker is again seen. Mediastinal surgical clips and sternal wires are unchanged. There is diffuse bone demineralization. No displaced fracture is identified. Impression: No acute disease. Electronically Signed by Lissette Hair MD 04/10/2019 08:53 A
[2019-04-10 10:00] VITALS: BP_SYST 139; BP_SYST 140; BP_SYST 146; BP_DIAS 70; BP_DIAS 72; BP_DIAS 75
[2019-04-10] MEDS: levETIRAcetam 250MG TABLET (KEPPRA) PO SCH ×2 (10:31→20:15)
[2019-04-10] MEDS: LACOSAMIDE 50 MG TAB (VIMPAT) PO SCH ×2 (10:31→20:15)
[2019-04-10] MEDS: ATORVASTATIN 10 MG TAB PO SCH (10:31)
[2019-04-10] MEDS: BRIMONIDINE 0.1% OPHTH SOLN 5 ML OU SCH ×2 (10:32→20:14)
[2019-04-10] MEDS: SINEMET 25-100 MG TAB PO SCH ×4 (10:32→20:15)
[2019-04-10] MEDS: CAPTOpril 6.25 MG PER 1/2 TABLET PO SCH ×2 (10:32→20:05)
[2019-04-10] MEDS: AMIODARONE 200 MG TAB (PACERONE) PO SCH (10:32)
[2019-04-10] MEDS: LEVOTHYROXINE 125MCG TABLET (0.125MG) PO SCH (10:33)
[2019-04-10 14:00] VITALS: BP 97/55
--- NOTE | 2019-04-10 16:02 | IPNPDOC ---
Subjective Date Seen The patient was seen on 04/10/19. Subjective Chief Complaint/HPI Does not have any complaints this am . has a cut on his nose and some bruising on both the wrists on dorsum aspect. Denies any dizziness or light headedness. Says he did not have a seizure, he did not pass out and he did not hit his head. Says he was too far off from his chair so could not grab the chair handle properly with his right hand and it slipped and he lost his balance tried to correct his posture but ended up falling on his face. No fever or chills, no abdominal pain , nausea davy vomiting or diarreha. Objective Physical Examination General Exam: Positive: Alert, Cooperative, No Acute Distress Eye Exam: Positive: PERRLA, Conjunctiva & lids normal, EOMI; Negative: Sclera icteric ENT Exam: Positive: Mucous membr. moist/pink, Tongue Midline, Other ENT (injury to the nose) Neck Exam: Positive: Supple; Negative: JVD, thyromegaly Chest Exam: Positive: Clear to auscultation, Normal air movement Heart Exam: Positive: Rate Normal, Regular Rhythm, Normal S1, Normal S2; Negative: Murmurs, Rubs Telemetry: Positive: No significant arrhythmia Abdomen Exam: Positive: Normal bowel sounds, Soft; Negative: Tenderness, Hepatospenomegaly Extremity Exam: Positive: Normal pulses; Negative: Clubbing, Cyanosis, Edema Neuro Exam: Positive: Normal Speech, Normal Tone Psych Exam: Positive: Mental status NL, Mood NL, Memory Intact, Oriented x 3 Assessment /Plan Assessment s/p Mechanical Fall due to gait imbalance from Parkinson disease CT head and CT cervical spine negative. Carotid US no obstruction will check orthostatic vitals He denied any syncope PT eval Parkinson disease continue sinemet, rasagiline Atrial fibrillation. has pacemaker in place since 2015 continue amiodarone Seizures continue lacosamide, Keppra Coronary artery disease with h/o AMI and s/p CABG in 2004 and stents in 2014 no issues at present troponins not elevated Diabetes. Hypertension. Patient noted to have hypotension on arrival to the ED which resolved with 1 liter of fluid. Now hypertensive continue captopril with hold parameters. will hold lasix. Dyslipidemia. continue statin. Congestive heart failure with moderate pulmonary hypertension and right heart failure. no signs of fluid overload at present. was hypotensive on admission will hold diuretics. Non Hodgkin's lymphoma. treated in 2015 now in remission Carotid artery disease Carotid endarterectomy. carotid US now no occlusion seen Hypothyroid continue synthroid Urinary incontinence with hidden penis. continue flomax and finasteride Glaucoma continue home eye drops. Plan/VTE VTE Prophylaxis Ordered?: Yes VS, I&O, 24H, Fishbone Vital Signs/I&O Vital Signs Date Time Temp Pulse Resp B/P (MAP) Pulse Ox O2 Delivery O2 Flow Rate FiO2 04/10/19 05:20 98.0 70 20 161/72 (101) 97 04/09/19 23:15 4.0 04/09/19 21:14 Room Air I&O- Last 24 Hours up to 6 AM 04/10/19 06:00 Intake Total 1000 ml Output Total 0 ml Balance 1000 ml Laboratory Data 24H LABS Laboratory Tests 2 04/09/19 22:38: Immature Granulocyte % (Auto) 1.2, White Blood Count 10.0, Red Blood Count 3.51L, Hemoglobin 12.5L, Hematocrit 36.7L, Mean Corpuscular Volume 104.6H, Mean Corpuscular Hemoglobin 35.6H, Mean Corpuscular Hemoglobin Concent 34.1, Red Cell Distribution Width 12.4, Platelet Count 197, Neutrophils (%) (Auto) 75.7H, Lymphocytes (%) (Auto) 12.8L, Monocytes (%) (Auto) 8.8H, Eosinophils (%) (Auto) 1.3, Basophils (%) (Auto) 0.2, Neutrophils # (Auto) 7.5, Lymphocytes # (Auto) 1.3L, Monocytes # (Auto) 0.9H, Eosinophils # (Auto) 0.1, Basophils # (Auto) 0.0, Nucleated Red Blood Cells % (auto) 0.0, Prothrombin Time 13.1, Prothromb Time International Ratio 1.02, Activated Partial Thromboplast Time 21.9L, Anion Gap 10, Glomerular Filtration Rate > 60.0, Lactic Acid Level 1.7, Calcium Level 8.4L, Aspartate Amino Transf (AST/SGOT) 25, Alanine Aminotransferase (ALT/SGPT) 7L, Alkaline Phosphatase 112, Total Bilirubin 0.4, Direct Bilirubin 0.1, Total Creatine Kinase 33L, Creatine Kinase MB 1.6, Creatine Kinase MB Relative Index 4.85H, Troponin I 0.05, VZ-Xsi-L-Type Natriuretic Peptide 1266H, Total Protein 5.8L, Albumin 3.0L, Albumin/Globulin Ratio 1.07, Thyroid Stimulating Hormone (TSH) 1.010, Free Thyroxine 1.88H 04/10/19 04:31: Nucleated Red Blood Cells % (auto) 0.0, Prothrombin Time 13.2, Prothromb Time International Ratio 1.03, Anion Gap 9, Glomerular Filtration Rate > 60.0, Calcium Level 8.3L, Aspartate Amino Transf (AST/SGOT) 25, Alanine Ami notransferase (ALT/SGPT) 10L, Alkaline Phosphatase 109, Total Bilirubin 0.3, Troponin I 0.04, Total Protein 5.7L, Albumin 2.9L, Albumin/Globulin Ratio 1.04, Blood Urea Nitrogen 17, Creatinine 0.92, Sodium Level 138, Potassium Level 4.0, Chloride Level 101, Carbon Dioxide Level 28, Phosphorus Level 3.5 CBC/BMP Laboratory Tests 04/09/19 22:38 Red Blood Count 3.51 L, Mean Corpuscular Volume 104.6 H, Mean Corpuscular Hemoglobin 35.6 H, Mean Corpuscular Hemoglobin Concent 34.1, Red Cell Distribution Width 12.4, Neutrophils (%) (Auto) 75.7 H, Lymphocytes (%) (Auto) 12.8 L, Monocytes (%) (Auto) 8.8 H, Eosinophils (%) (Auto) 1.3, Basophils (%) (Auto) 0.2, Neutrophils # (Auto) 7.5, Lymphocytes # (Auto) 1.3 L, Monocytes # (Auto) 0.9 H, Eosinophils # (Auto) 0.1, Basophils # (Auto) 0.0 04/10/19 04:31 Red Blood Count 3.64 L, Mean Corpuscular Volume 103.8 H, Mean Corpuscular Hemoglobin 35.2 H, Mean Corpuscular Hemoglobin Concent 33.9, Red Cell Distribution Width 12.5, Calcium Level 8.3 L, Phosphorus Level 3.5, Aspartate Amino Transf (AST/SGOT) 25, Alanine Aminotransferase (ALT/SGPT) 10 L, Alkaline Phosphatase 109, Total Bilirubin 0.3, Total Protein 5.7 L, Albumin 2.9 L Microbiology Microbiology 04/09/19 Blood Culture, Received Pending 04/09/19 Blood Culture, Received Pending TAYLOR PRASAD MD Apr 10, 2019 08:45
[2019-04-10 20:05] VITALS: BP 116/56
[2019-04-10] MEDS ORDERED: NS 500 ML IV ONE (20:15)
[2019-04-10] MEDS: NYSTATIN 100,000 UNITS/GM TOPICAL PWD 15 GM TOP SCH (20:51)
[2019-04-10 21:30] VITALS: BP_SYST 126; BP_SYST 128; BP_SYST 129; BP_DIAS 58; BP_DIAS 61
[2019-04-10] MEDS: BETAMETHASONE VAL 0.1% OINT 15 GM TOP SCH (21:58)
[2019-04-10 22:00] VITALS: BP 129/58
[2019-04-10 22:35] LABS: BASO % 0.3 % (0.0-1.0); EOS # 0.1 10^3/uL (0.0-0.5); EOS % 1.4 % (0.0-3.0); HEMATOCRIT 33.5 % (42.0-52.0); HEMOGLOBIN 11.3 g/dl (13.5-17.5); LYMPH # 1.6 10^3/uL (1.5-5.0); LYMPH % 16.4 % (24.0-44.0); MEAN CORPUSCULAR HEMOGLOBIN 35.4 pg (27.0-33.0); MEAN CORPUSCULAR HGB CONC 33.7 g/dl (32.0-36.5); MONO # 0.9 10^3/uL (0.0-0.8); MONO % 9.4 % (0.0-5.0); NEUTROPHILS # 7.1 10^3/uL (1.5-8.5); NEUTROPHILS % 71.9 % (36.0-66.0); PLATELET COUNT, AUTOMATED 189 10^3/uL (150-450); RED BLOOD COUNT 3.19 10^6/uL (4.30-6.10); WHITE BLOOD COUNT 9.9 10^3/uL (4.0-10.0)
[2019-04-10 23:16] LABS: TROPONIN I 0.02 NG/ML (< 0.10)
--- NOTE | 2019-04-11 00:35 | HPEPDOC ---
General Date of Admission Apr 09, 2019 at 20:51 Date of Service: Apr 10, 2019 (Patient seen at 0133) Primary Care Physician: AMALIA JETT MD Attending Physician: TRAE SHELBY DO Chief Complaint The patient is a 83-year-old male admitted with a reason for visit of Fall, Syncope. Source: Patient, Family (Daughter (2nd Health care Proxy)), RN notes reviewed, EMS notes reviewed, Old records Exam Limitations: Hard of hearing Timing/Duration: 1-3 hours Severity: Moderate Associated Symptoms: Seizure (has history of with last one 2 years ago), Syncope, Dizziness, Mechanical fall History of Present Illness 83 year-old elderly male presents to ED at [facility] with his daughter complaints of patient experiencing a a syncope episode earlier this evening where he was sitting in his chair at home, leaning forward to grasp his walker, feeling dizzy he fell face first onto the floor, hitting his hand on the side of the arm rest of the chair he was sitting in. This resulted in him having a moderate nosebleed yet patient refused to go to the emergency room at this time when his family encouraged him to come be evaluated. He was assisted off the floor by his son-in-law and his daughter at this time. He reported feeling dizzy and his daughter stated he had a vacant look in his eyes, he did not recognize having seizure like activities with uncontrollably shaking of his limbs that lasted less than a minute. This seizure-like activity occurred approximately less than an hour after he had fallen with his chair, hitting his nose on the floor. He has a significant medical history of epilepsy, currently on medications Keppra 750 mg twice a day and Vimpat 200 mg by mouth twice a day, Parkinson's disease on Sinemet, hypothyroidism, Atrial fibrillation, Carotid Endarterectomy,Hyperlipidemia, Left cornea transplant, Non-Hodgkin's Lymphoma in remission, Quadruple bypass surgery/Coronary artery disease, Pacemaker of left chest wall. . CT cervical spine and CT head completed in ED, no acute disease process is found. Due to patient syncope episode and past medical history with comorbidities. He will be admitted to Med-Surg observation unit for further monitoring under hospitalist services. Home Medications Scheduled Amiodarone HCl (Amiodarone HCl) 200 Mg Tab, 200 MG PO DAILY, (Reported) Atorvastatin Calcium (Atorvastatin Calcium) 10 Mg Tab, 10 MG PO DAILY, (Reported) Brimonidine Tartrate (Alphagan P) 0.1% 5ML Drops, 1 DROP OU BID, (Reported) Captopril (Captopril) 12.5 Mg Tab, 6.25 MG PO BID, (Reported) Carbidopa/Levodopa (Carbidopa-Levodopa 25-100 Tab) 1 Each Tablet, 2 TAB PO QID, (Reported) 0800, 1200, 1600, 2000 Furosemide (Furosemide) 40 Mg Tab, 40 MG PO DAILY, (Reported) Lacosamide (Vimpat) 100 Mg Tablet, 100 MG PO BID, (Reported) Levetiracetam (Levetiracetam) 750 Mg Tab, 750 MG PO BID, (Reported) Levothyroxine Sodium (Levoxyl) 125 Mcg Tab, 125 MCG PO DAILY, (Reported) Potassium Chloride (Klor-Con M20) 20 Meq Tabcr, 20 MEQ PO BID, (Reported) Prednisolone Acetate (Prednisolone Acetate 1% Opth Susp) 5 Ml Drops.susp, 1 DROP OS BID, (Reported) Rasagiline Mesylate (Rasagiline Mesylate) 1 Mg Tablet, 1 MG PO DAILY, (Reported) Scheduled PRN Pimecrolimus (Elidel) 30 Gm Cream..g., 1 DOSE TOP BID PRN for PSORIASIS, (Reported) USE ON FACE AND GROIN NEEDED Allergies Coded Allergies: piperacillin (Verified Allergy, Intermediate, LIP SWELLING, 04/09/19) Egg Derived (Verified Allergy, Unknown, EGG WHITES, 04/09/19) FRUIT (Verified Allergy, Unknown, no Fresh Fruits, he eats canned ok., 09/28/16) He can eat canned but NO Fresh Fruit brimonidine (Verified Allergy, Unknown, 04/09/19) buckwheat (Verified Allergy, Unknown, 04/09/19) Past Medical History Medical History Atrial fibrillation, epilepsy, coronary artery disease, non-Hodgkin's lymphoma in remission, Parkinson's disease, hypothyroidism, carotid endarterectomy Surgical History Tonsillectomy, quadruple bypass with 4 stents, pacemaker, left eye cornea transplant Family History Significant Family History: Noncontributory Social History * Smoker: former Smoker, cigarettes Alcohol: Denies Drugs: denies Recent Travel/Sick Contacts: Denies: Recent travel, Recent sick contacts Psychosocial History: No pertinent psych hx, Eber SI and HI A-FIB/CHADSVASC A-FIB History Current/History of A-Fib/PAF?: Yes Current PO Anticoag Therapy: No Age/Risk Factor Scoring CHADSVASC: CHADSVASC Response (Comments) Value Age Risk Factor Age >/= 75 years old 2 Gender Risk Factor Male 0 Hx of CHF No 0 Hx of HTN Yes 1 Hx of Stroke/TIA/or VTE No 0 Hx of Diabetes No 0 Hx of Vascular Disease No 0 Total 3 Treatment Treatment ordered: Other Other anticoagulant ordered: Heparin 5000 IU TID SC Review of Systems Constitutional: Reports: Fatigue Eyes: Reports: Pain; Denies: Vision change, Conjunctivae inflammation, Eyelid inflammation, Redness, Other ENT: Reports: Head Aches Skin: Reports: Other (dried blood on and in nose) Pulmonary: Denies: Dyspnea, Cough, Pleuritic Chest Pain, Other Symptoms Cardiovascular: Reports: Lt Headedness (getting better) Gastrointestinal: Denies: Nausea, Vomiting, Abdominal Pain, Diarrhea, Constipation, Melena, Hematochezia, Other Symptoms Genitourinary: Reports: Other Symptoms (nocturia 4 ) Hematologic: Reports: Bruising (nose) Endocrine: Denies: Polydipsia, Polyphagia, Polyuria, Heat Intolerance, Cold Intolerance, Other Endocrine Sx Musculoskeletal: Reports: Neck Pain, Spasms, Other Symptoms (walks with walker) Neurological: Reports: Weakness, Incoordination (tremors ) Psych: Reports: Memory Issues (recent memory of events relating to fall-mildy jumbled. Daughter assisted), Other Psych (labile mood with flat affect) Physical Examination General Exam: Positive: Alert, Cooperative, No Acute Distress Eye Exam: Positive: PERRLA, Conjunctiva & lids normal, EOMI; Negative: Sclera icteric ENT Exam: Positive: Mucous membr. moist/pink, Tongue Midline, Other ENT (injury to the nose) Neck Exam: Positive: Supple; Negative: JVD, thyromegaly Chest Exam: Positive: Clear to auscultation, Normal air movement Heart Exam: Positive: Rate Normal, Regular Rhythm, Normal S1, Normal S2, Other (Pacemaker left chest wall); Negative: Murmurs, Rubs Telemetry: Positive: No significant arrhythmia Abdomen Exam: Positive: Normal bowel sounds, Soft; Negative: Tenderness, Hepatospenomegaly Extremity Exam: Positive: Normal pulses; Negative: Clubbing, Cyanosis, Edema Skin Exam: Positive: Nl turgor and temperature Neuro Exam: Positive: Normal Speech, Normal Tone Psych Exam: Positive: Mental status NL, Mood NL, Memory Intact, Oriented x 3 Vital Signs Vital Signs Date Time Temp Pulse Resp B/P (MAP) Pulse Ox O2 Delivery O2 Flow Rate FiO2 04/10/19 14:00 96.5 70 18 97/55 (69) 100 04/09/19 23:15 4.0 04/09/19 21:14 Room Air Laboratory Data Labs 24H Laboratory Tests 2 04/09/19 22:38: Immature Granulocyte % (Auto) 1.2, White Blood Count 10.0, Red Blood Count 3.51L, Hemoglobin 12.5L, Hematocrit 36.7L, Mean Corpuscular Volume 104.6H, Mean Corpuscular Hemoglobin 35.6H, Mean Corpuscular Hemoglobin Concent 34.1, Red Cell Distribution Width 12.4, Platelet Count 197, Neutrophils (%) (Auto) 75.7H, Lymph ocytes (%) (Auto) 12.8L, Monocytes (%) (Auto) 8.8H, Eosinophils (%) (Auto) 1.3, Basophils (%) (Auto) 0.2, Neutrophils # (Auto) 7.5, Lymphocytes # (Auto) 1.3L, Monocytes # (Auto) 0.9H, Eosinophils # (Auto) 0.1, Basophils # (Auto) 0.0, Nucleated Red Blood Cells % (auto) 0.0, Prothrombin Time 13.1, Prothromb Time International Ratio 1.02, Activated Partial Thromboplast Time 21.9L, Anion Gap 10, Glomerular Filtration Rate > 60.0, Lactic Acid Level 1.7, Calcium Level 8.4L, Aspartate Amino Transf (AST/SGOT) 25, Alanine Aminotransferase (ALT/SGPT) 7L, Alkaline Phosphatase 112, Total Bilirubin 0.4, Direct Bilirubin 0.1, Total Creatine Kinase 33L, Creatine Kinase MB 1.6, Creatine Kinase MB Relative Index 4.85H, Troponin I 0.05, CA-Fvo-U-Type Natriuretic Peptide 1266H, Total Protein 5.8L, Albumin 3.0L, Albumin/Globulin Ratio 1.07, Thyroid Stimulating Hormone (TSH) 1.010, Free Thyroxine 1.88H 04/10/19 04:31: Nucleated Red Blood Cells % (auto) 0.0, Prothrombin Time 13.2, Prothromb Time International Ratio 1.03, Anion Gap 9, Glomerular Filtration Rate > 60.0, Calcium Level 8.3L, Aspartate Amino Transf (AST/SGOT) 25, Alanine Aminotransferase (ALT/SGPT) 10L, Alkaline Phosphatase 109, Total Bilirubin 0.3, Troponin I 0.04, Total Protein 5.7L, Albumin 2.9L, Albumin/Globulin Ratio 1.04, Blood Urea Nitrogen 17, Creatinine 0.92, Sodium Level 138, Potassium Level 4.0, Chloride Level 101, Carbon Dioxide Level 28, Phosphorus Level 3.5 04/10/19 10:23: Troponin I 0.02# 04/10/19 16:22: Troponin I < 0.02 CBC/BMP Laboratory Tests 04/09/19 22:38 Red Blood Count 3.51 L, Mean Corpuscular Volume 104.6 H, Mean Corpuscular H emoglobin 35.6 H, Mean Corpuscular Hemoglobin Concent 34.1, Red Cell Distribution Width 12.4, Neutrophils (%) (Auto) 75.7 H, Lymphocytes (%) (Auto) 12.8 L, Monocytes (%) (Auto) 8.8 H, Eosinophils (%) (Auto) 1.3, Basophils (%) (Auto) 0.2, Neutrophils # (Auto) 7.5, Lymphocytes # (Auto) 1.3 L, Monocytes # (Auto) 0.9 H, Eosinophils # (Auto) 0.1, Basophils # (Auto) 0.0 04/10/19 04:31 Red Blood Count 3.64 L, Mean Corpuscular Volume 103.8 H, Mean Corpuscular Hemoglobin 35.2 H, Mean Corpuscular Hemoglobin Concent 33.9, Red Cell Distribution Width 12.5, Calcium Level 8.3 L, Phosphorus Level 3.5, Aspartate Amino Transf (AST/SGOT) 25, Alanine Aminotransferase (ALT/SGPT) 10 L, Alkaline Phosphatase 109, Total Bilirubin 0.3, Total Protein 5.7 L, Albumin 2.9 L Microbiology Microbiology 04/09/19 Blood Culture, Received Pending 04/09/19 Blood Culture, Received Pending Echocardiogram EKG read shows symmetrical atrial pacemaker with ventricular pacemaker. Rate 69, W[place] interval 222, QRS duration 155, QT/QTc 489/509, P, R, T [id number] , -17 189. RAD Interpretation STUDY: CT cervical spine without contrast shows nondisplaced fracture or subluxation. There is multilevel degeneration of spine. CT head without IV contrast shows no acute intracranial hemorrhage. There is small amount of debris in the left sphenoid sinus. This is where patient failed and hit his nose on the floor in his home. Assessment/Plan 83 year-old elderly male presents to ED at [facility] with his daughter complaints of patient experiencing a a syncope episode earlier this evening where he was sitting in his chair at home, leaning forward to grasp his walker, feeling dizzy he fell face first onto the floor, hitting his hand on the side of the arm rest of the chair he was sitting in. This resulted in him having a moderate nosebleed yet patient refused to go to the emergency room at this time when his family encouraged him to come be evaluated. He was assisted off the floor by his son-in-law and his daughter at this time. He reported feeling dizzy and his daughter stated he had a vacant look in his eyes, he did not recognize having seizure like activities with uncontrollably shaking of his limbs that lasted less than a minute. This seizure-like activity occurred approximately less than an hour after he had fallen with his chair. Upon arrival to the ED, patient's blood pressure systolically was 79. Plan Syncope with Collapse & Fall-Acute Fall Precautions Initiate bowel regimen: Milk of Mag 30 cc Po daily, Colace 100 mg Po twice a day Continuous telemetry and pulse oximetry monitoring Hypotension-Acute/Resolved after Rehydration w IV fluids normal saline 1 liter bolus Non-Hodgkins Lymphoma-Chronic Remission -follow up in 6 months Coronary Artery Disease with Stents (Quadruple Bypass)-chronic Carotid Doppler statno stenosis bilateral carotid arteries Monitor labs: CK, Magnesium,lactic acid,CMP Atrial fibrillationchronic Repeat EKG if needed. Continue amiodarone 200 mg by mouth daily, atorvastatin 10 mg by mouth daily at bedtime Essential hypertensionchronic Monitor blood pressure with goal below pressure systolic less than 180 while inpatient, diastolic less than 90 Continue taking Captopril 6.25 mg twice a day. Monitor labs trending troponin level every 6 hours: First troponin 0.05, second troponin trending down 0.04 Congestive Heart Failure-Chronic Labs:CBC, pro-t BNP-1266 (active),phosphorus, Daily weights Monitor I&O's (strict 1200cc fluid restriction) Epilepsychronic Monitor lab levels: Keppra and Vimpat . Continue taking Keppra 750 mg by mouth twice daily and Vimpat 20 mg by mouth twice a day Neuro-checks 2 hours Seizure precautions Hypothyroidismchronic Lab: TSH Continue the thyroxine 125 g by mouth daily on empty stomach. Parkinson's diseasechronic PT/OT to evaluate and treat, gait disturbance and balance. Continue taking carbidopa levodopa 25/502 tabs by mouth 4 times a day & Rasagi line 1 mg Po daily (Family to bring in hospital does not carry MAOI, B) Monitor carbidopa level Glaucoma-Chronic Continue eye drops: Brimonidine 0.1% 1 drop both eyes Four times a day Prognosis: Good DVT Prophylaxis: Heparin 5000 IU SC TID, SCDs/ROSANGELA Stockings BLE Discharge: Pending Problems (1) Syncope Status: Acute Response to Treatment: Improving Discussed With: Patient, Health Care Proxy, Family with Pt Consent Problem Specific Plan: Monitor Clinically Plan / VTE VTE Prophylaxis Ordered?: Yes VTE Exclusion Mechanical Proph: Eagle Lower Ex DVT Plan IVF: Initiate Diet: Continue Current Activity: Bedrest (with bathroom privileges, fall precautions) Therapy: PT (Evaluate and Treat), OT Diagnostics: Check Labs, Repeat Labs in AM, CT, Ultrasound (carotid doppler) Advanced Directives: MOLST Form is available, Do Not Resuscitate (DNR), Do Not Intubate (DNI), Health Care Proxy (HCP) ( (#1 per daughter is suffering from dementia). Daughter #2) SERGIO BERMUDEZP Apr 10, 2019 21:29
[2019-04-11 01:36] LABS: APPEARANCE, URINE CLEAR (CLEAR); BACTERIA, URINE AUTO 1+ (NEGATIVE); BILIRUBIN, URINE AUTO NEGATIVE (NEGATIVE); BLOOD, URINE BLOOD NEGATIVE (NEGATIVE); COLOR, URINE YELLOW (YELLOW); GLUCOSE, URINE (UA) AUTO NEGATIVE (NEGATIVE); KETONE, URINE AUTO TRACE mg/dL (NEGATIVE); LEUKOCYTE ESTERASE, URINE AUTO 1+ (NEGATIVE); MUCUS, URINE SMALL (NEGATIVE); NITRITE, URINE AUTO NEGATIVE (NEGATIVE); PROTEIN, URINE AUTO NEGATIVE (NEGATIVE); RBC, URINE AUTO 3 /HPF (0-3); SPECIFIC GRAVITY URINE AUTO 1.013 (1.002-1.035); SQUAMOUS EPITHELIAL CELL UR AU 0 /HPF (0-6); UROBILINOGEN, URINE AUTO 0.2 mg/dL (0.0-2.0); WBC, URINE AUTO 14 /HPF (0-3)
[2019-04-11] MEDS: HEPARIN SOD (PORCINE) 5000 UNITS/ML VIAL SC SCH ×3 (05:34→22:23)
[2019-04-11] MEDS: LEVOTHYROXINE 125MCG TABLET (0.125MG) PO SCH (05:34)
[2019-04-11 06:00] VITALS: BP 110/66
[2019-04-11 06:16] VITALS: BP_SYST 110; BP_SYST 71; BP_SYST 88; BP_DIAS 39; BP_DIAS 51; BP_DIAS 66
[2019-04-11 06:25] VITALS: BP 126/64
[2019-04-11 06:34] LABS: BASO % 0.2 % (0.0-1.0); EOS # 0.1 10^3/uL (0.0-0.5); EOS % 1.5 % (0.0-3.0); HEMATOCRIT 33.7 % (42.0-52.0); HEMOGLOBIN 11.5 g/dl (13.5-17.5); LYMPH % 21.5 % (24.0-44.0); MEAN CORPUSCULAR HEMOGLOBIN 34.6 pg (27.0-33.0); MEAN CORPUSCULAR HGB CONC 34.1 g/dl (32.0-36.5); MEAN CORPUSCULAR VOLUME 101.5 fl (80.0-96.0); MONO # 0.9 10^3/uL (0.0-0.8); NEUTROPHILS # 6.4 10^3/uL (1.5-8.5); PLATELET COUNT, AUTOMATED 205 10^3/uL (150-450); RED BLOOD COUNT 3.32 10^6/uL (4.30-6.10); WHITE BLOOD COUNT 9.5 10^3/uL (4.0-10.0)
[2019-04-11 06:42] LABS: ALBUMIN 2.7 GM/DL (3.2-5.2); ALT/SGPT 8 U/L (12-78); BILIRUBIN,TOTAL 0.3 MG/DL (0.2-1.0); BLOOD UREA NITROGEN 20 MG/DL (7-18); CALCIUM LEVEL 8.7 MG/DL (8.8-10.2); CARBON DIOXIDE LEVEL 27 MEQ/L (21-32); CHLORIDE LEVEL 104 MEQ/L (98-107); CREATININE FOR GFR 0.89 MG/DL (0.70-1.30); GLOMERULAR FILTRATION RATE > 60.0 (>35); GLUCOSE, FASTING 112 MG/DL (70-100); MAGNESIUM LEVEL 1.9 MG/DL (1.8-2.4); POTASSIUM SERUM 3.8 MEQ/L (3.5-5.1); SODIUM LEVEL 139 MEQ/L (136-145); TOTAL PROTEIN 5.9 GM/DL (6.4-8.2)
[2019-04-11] MEDS: LACOSAMIDE 50 MG TAB (VIMPAT) PO SCH ×2 (10:08→22:22)
[2019-04-11] MEDS: SINEMET 25-100 MG TAB PO SCH ×4 (10:08→22:22)
[2019-04-11] MEDS: AMIODARONE 200 MG TAB (PACERONE) PO SCH (10:09)
[2019-04-11] MEDS: BRIMONIDINE 0.1% OPHTH SOLN 5 ML OU SCH ×2 (10:09→22:23)
[2019-04-11] MEDS: levETIRAcetam 250MG TABLET (KEPPRA) PO SCH ×2 (10:09→22:22)
[2019-04-11] MEDS: BETAMETHASONE VAL 0.1% OINT 15 GM TOP SCH ×2 (10:09→22:24)
[2019-04-11] MEDS: DOCUSATE SODIUM 100 MG CAP PO SCH (10:09)
[2019-04-11] MEDS: ATORVASTATIN 10 MG TAB PO SCH (10:09)
[2019-04-11] MEDS: NYSTATIN 100,000 UNITS/GM TOPICAL PWD 15 GM TOP SCH ×2 (10:10→22:23)
[2019-04-11] MEDS: MOM 30ML SUSPENSION UDC PO SCH (13:09)
[2019-04-11] MEDS: SENOKOT S TAB PO SCH ×2 (13:10→22:22)
[2019-04-11] MEDS: RASAGILINE 1 MG PO SCH (13:10)
[2019-04-11 14:00] VITALS: BP 116/58
[2019-04-11 19:45] VITALS: BP_SYST 101; BP_SYST 78; BP_SYST 80; BP_DIAS 43; BP_DIAS 45; BP_DIAS 51
[2019-04-11 20:00] VITALS: BP 132/62
[2019-04-12] VITALS: BP 159/73
[2019-04-12 06:00] VITALS: BP_SYST 108; BP_SYST 70; BP_DIAS 54; BP_DIAS 57
[2019-04-12] MEDS: HEPARIN SOD (PORCINE) 5000 UNITS/ML VIAL SC SCH (06:03)
[2019-04-12] MEDS: LEVOTHYROXINE 125MCG TABLET (0.125MG) PO SCH (06:04)
[2019-04-12 06:26] LABS: BASO % 0.3 % (0.0-1.0); EOS # 0.2 10^3/uL (0.0-0.5); EOS % 2.2 % (0.0-3.0); HEMATOCRIT 34.3 % (42.0-52.0); HEMOGLOBIN 11.6 g/dl (13.5-17.5); LYMPH % 19.6 % (24.0-44.0); MEAN CORPUSCULAR HEMOGLOBIN 35.5 pg (27.0-33.0); MEAN CORPUSCULAR HGB CONC 33.8 g/dl (32.0-36.5); MEAN CORPUSCULAR VOLUME 104.9 fl (80.0-96.0); MONO # 0.9 10^3/uL (0.0-0.8); MONO % 8.8 % (0.0-5.0); NEUTROPHILS # 6.8 10^3/uL (1.5-8.5); NEUTROPHILS % 67.9 % (36.0-66.0); PLATELET COUNT, AUTOMATED 185 10^3/uL (150-450); RED BLOOD COUNT 3.27 10^6/uL (4.30-6.10)
[2019-04-12 06:45] LABS: BLOOD UREA NITROGEN 14 MG/DL (7-18); CALCIUM LEVEL 8.6 MG/DL (8.8-10.2); CARBON DIOXIDE LEVEL 24 MEQ/L (21-32); CHLORIDE LEVEL 102 MEQ/L (98-107); CREATININE FOR GFR 0.76 MG/DL (0.70-1.30); GLOMERULAR FILTRATION RATE > 60.0 (>35); GLUCOSE, FASTING 92 MG/DL (70-100); POTASSIUM SERUM 3.8 MEQ/L (3.5-5.1); SODIUM LEVEL 135 MEQ/L (136-145)
[2019-04-12] MEDS: LACOSAMIDE 50 MG TAB (VIMPAT) PO SCH (08:11)
[2019-04-12] MEDS: SINEMET 25-100 MG TAB PO SCH ×2 (08:11→12:51)
[2019-04-12] MEDS: MIDODRINE 2.5 MG TAB PO SCH ×2 (08:11→12:51)
[2019-04-12] MEDS: RASAGILINE 1 MG PO SCH (08:11)
[2019-04-12] MEDS: levETIRAcetam 250MG TABLET (KEPPRA) PO SCH (08:11)
[2019-04-12] MEDS: ATORVASTATIN 10 MG TAB PO SCH (08:12)
[2019-04-12] MEDS: AMIODARONE 200 MG TAB (PACERONE) PO SCH (08:12)
[2019-04-12] MEDS: BRIMONIDINE 0.1% OPHTH SOLN 5 ML OU SCH (08:12)
[2019-04-12] MEDS: MOM 30ML SUSPENSION UDC PO SCH (08:12)
[2019-04-12] MEDS: SENOKOT S TAB PO SCH (08:12)
[2019-04-12] MEDS: NYSTATIN 100,000 UNITS/GM TOPICAL PWD 15 GM TOP SCH (08:13)
[2019-04-12] MEDS: BETAMETHASONE VAL 0.1% OINT 15 GM TOP SCH (08:13)
--- NOTE | 2019-04-12 13:31 | IPNPDOC ---
Subjective Date Seen The patient was seen on 04/11/19. Subjective Chief Complaint/HPI light headed and dizzy this am on sittingu and standing with orthostatic drop in blood pressures, Has not had any bowel movement for last several days . As per daughter often goes without bowel movement ofr 4 to 5 days at home. Objective Physical Examination General Exam: Positive: Alert, Cooperative, No Acute Distress Eye Exam: Positive: PERRLA, Conjunctiva & lids normal, EOMI; Negative: Sclera icteric ENT Exam: Positive: Mucous membr. moist/pink, Tongue Midline, Other ENT (injury to the nose) Neck Exam: Positive: Supple; Negative: JVD, thyromegaly Chest Exam: Positive: Clear to auscultation, Normal air movement Heart Exam: Positive: Rate Normal, Regular Rhythm, Normal S1, Normal S2, Other (Pacemaker left chest wall); Negative: Murmurs, Rubs Telemetry: Positive: No significant arrhythmia Abdomen Exam: Positive: Normal bowel sounds, Soft; Negative: Tenderness, Hepatospenomegaly Extremity Exam: Positive: Normal pulses; Negative: Clubbing, Cyanosis, Edema Skin Exam: Positive: Nl turgor and temperature Neuro Exam: Positive: Normal Speech, Normal Tone Psych Exam: Positive: Mental status NL, Mood NL, Memory Intact, Oriented x 3 Assessment /Plan Assessment Syncope/ Presyncope and Mechanical Fall He has orthostatic hypotension possibly as part of 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 He probably has episodes of orthostatic hypotension when he has symptoms of dizzyness and light headedness presyncopal episode with increased gait imbalance and subsequent loss of balance and fall. CT head and CT cervical spine negative. Carotid US no obstruction No Cardiac arrhythmias noted in more than 24 hours of tele monitoring Echo pending. Continue working with PT Possible episode of Seizure has history of partial seizures. patient denies but daughter says about an hour after his fall o his face he did have jerking movement of his limbs which lasted less than a minute keppra and lacosamide levels are pending continue home meds Constipation has bowel regimen in place. Parkinson disease continue sinemet, rasagiline Atrial fibrillation. has pacemaker in place since 2015 continue amiodarone Coronary artery disease with h/o AMI and s/p CABG in 2004 and stents in 2014 no issues at present troponins not elevated Hypertension. Patient noted to have hypotension on arrival to the ED which resolved with 1 liter of fluid. again hypotensive this am with significant drop after standing will stop captopril. Dyslipidemia. continue statin. Congestive heart failure with moderate pulmonary hypertension and right heart failure. no signs of fluid overload at present. was hypotensive on admission will hold diuretics. Non Hodgkin's lymphoma. treated in 2015 now in remission Carotid artery disease Carotid endarterectomy. carotid US now no occlusion seen Hypothyroid continue synthroid Urinary incontinence with hidden penis. continue flomax and finasteride Glaucoma with left cornea replacement. continue home eye drops. Plan/VTE VTE Prophylaxis Ordered?: Yes VTE Exclusion Mechanical Proph: [place] Ex DVT Plan IVF: Initiate Diet: Continue Current Activity: Bedrest (with bathroom privileges, fall precautions) Therapy: PT (Evaluate and Treat), OT Diagnostics: Check Labs, Repeat Labs in AM, CT, Ultrasound (carotid doppler) VS, I&O, 24H, Fishbone Vital Signs/I&O Vital Signs Date Time Temp Pulse Resp B/P (MAP) Pulse Ox O2 Delivery O2 Flow Rate FiO2 04/11/19 06:25 126/64 (84) 04/11/19 06:16 69 70 70 04/11/19 06:00 97.6 20 96 04/09/19 23:15 4.0 04/09/19 21:14 Room Air I&O- Last 24 Hours up to 6 AM 04/11/19 06:00 Intake Total 1250 ml Output Total 700 ml Balance 550 ml Laboratory Data 24H LABS Laboratory Tests 2 04/10/19 16:22: Troponin I < 0.02 04/10/19 22:28: Troponin I 0.02, Immature Granulocyte % (Auto) 0.6, White Blood Count 9.9, Red Blood Count 3.19L, Hemoglobin 11.3L, Hematocrit 33.5L, Mean Corpuscular Volume 105.0H, Mean Corpuscular Hemoglobin 35.4H, Mean Corpuscular Hemoglobin Concent 33.7, Red Cell Distribution Width 12.6, Platelet Count 189, Neutrophils (%) (Auto) 71.9H, Lymphocytes (%) (Auto) 16.4L, Monocytes (%) (Auto) 9.4H, Eosinoph ils (%) (Auto) 1.4, Basophils (%) (Auto) 0.3, Neutrophils # (Auto) 7.1, Lymphocytes # (Auto) 1.6, Monocytes # (Auto) 0.9H, Eosinophils # (Auto) 0.1, Basophils # (Auto) 0.0, Nucleated Red Blood Cells % (auto) 0.0, QD-Gpl-C-Type Natriuretic Peptide 1016H 04/11/19 00:42: Urine Appearance CLEAR, Urine Color YELLOW, Urine pH 6.0, Urine Specific [place] 1.013, Urine Protein NEGATIVE, Urine Glucose (UA) NEGATIVE, Urine Ketones TRACEH, Urine Urobilinogen 0.2, Urine Bilirubin NEGATIVE, Urine Leukocyte Esterase 1+H, Urine Blood NEGATIVE, Urine Nitrite NEGATIVE, Urine WBC (Auto) 14H, Urine RBC (Auto) 3, Urine Hyaline Casts (Auto) 0, Urine Bacteria (Auto) 1+H, Urine Squamous Epithelial Cells 0, Urine Mucus (Auto) SMALL, Urine Sperm (Auto) 04/11/19 05:50: Immature Granulocyte % (Auto) 0.8, White Blood Count 9.5, Red Blood Count 3.32L, Hemoglobin 11.5L, Hematocrit 33.7L, Mean Corpuscular Volume 101.5H, Mean Corpuscular Hemoglobin 34.6H, Mean Corpuscular Hemoglobin Concent 34.1, Red Cell Distribution Width 12.4, Platelet Count 205, Neutrophils (%) (Auto) 67.0H, Lymphocytes (%) (Auto) 21.5L, Monocytes (%) (Auto) 9.0H, Eosinophils (%) (Auto) 1.5, Basophils (%) (Auto) 0.2, Neutrophils # (Auto) 6.4, Lymphocytes # (Auto) 2.0, Monocytes # (Auto) 0.9H, Eosinophils # (Auto) 0.1, Basophils # (Auto) 0.0, Nucleated Red Blood Cells % (auto) 0.0, Anion Gap 8, Glomerular Filtration Rate > 60.0, Blood Urea Nitrogen 20H, Creatinine 0.89, Sodium Level 139, Potassium Level 3.8, Chloride Level 104, Carbon Dioxide Level 27, Calcium Level 8.7L, Aspartate Amino Transf (AST/SGOT) 20, Alanine Aminotransferase (ALT/SGPT) 8L, Alkaline Phosphatase 113, Total Bilirubin 0.3, Total Protein 5.9L, Albumin 2.7L, Magnesium Level 1.9, Albumin/Globulin Ratio 0.84L CBC/BMP Laboratory Tests 04/10/19 22:28 Red Blood Count 3.19 L, Mean Corpuscular Volume 105.0 H, Mean Corpuscular Hemoglobin 35.4 H, Mean Corpuscular Hemoglobin Concent 33.7, Red Cell Distrib ution Width 12.6, Neutrophils (%) (Auto) 71.9 H, Lymphocytes (%) (Auto) 16.4 L, Monocytes (%) (Auto) 9.4 H, Eosinophils (%) (Auto) 1.4, Basophils (%) (Auto) 0.3, Neutrophils # (Auto) 7.1, Lymphocytes # (Auto) 1.6, Monocytes # (Auto) 0.9 H, Eosinophils # (Auto) 0.1, Basophils # (Auto) 0.0 04/11/19 05:50 Red Blood Count 3.32 L, Mean Corpuscular Volume 101.5 H, Mean Corpuscular Hemoglobin 34.6 H, Mean Corpuscular Hemoglobin Concent 34.1, Red Cell Distribution Width 12.4, Neutrophils (%) (Auto) 67.0 H, Lymphocytes (%) (Auto) 21.5 L, Monocytes (%) (Auto) 9.0 H, Eosinophils (%) (Auto) 1.5, Basophils (%) (Auto) 0.2, Neutrophils # (Auto) 6.4, Lymphocytes # (Auto) 2.0, Monocytes # (Auto) 0.9 H, Eosinophils # (Auto) 0.1, Basophils # (Auto) 0.0, Calcium Level 8.7 L, Aspartate Amino Transf (AST/SGOT) 20, Alanine Aminotransferase (ALT/SGPT) 8 L, Alkaline Phosphatase 113, Total Bilirubin 0.3, Total Protein 5.9 L, Albumin 2.7 L Microbiology Microbiology 04/09/19 Blood Culture - Preliminary, Resulted No growth after 24 hours . All specim... 04/09/19 Blood Culture - Preliminary, Resulted No growth after 24 hours . All specim... 04/11/19 Urine Culture, Received Pending TAYLOR PRASAD MD Apr 11, 2019 12:00
[2019-04-12] MEDS ORDERED: NYAM10003 TOP (13:43)
[2019-04-12] MEDS ORDERED: CAPT125TA PO (13:43)
[2019-04-12] MEDS ORDERED: MIDO2.5T PO (13:43)
--- NOTE | 2019-04-13 15:56 | DS.PDOC ---
Discharge Summary General Date of Admission Apr 11, 2019 at 13:52 Date of Discharge 04/12/19 Discharge Summary PROCEDURES PERFORMED DURING STAY: [None]. DISCHARGE DIAGNOSES: Orthostatic Syncope possible Seizure with h/o parial seizure Parkinson disease Afib pacemaker dyslipidemia CAD s/p CABG in 2003 and stents CHF with moderate pulmonary hypertension with right heart failure. Carotid artery disease with carotid end arterectomy hypothyroid glaucoma NHL in remission 2014 BPH urinary incontinence with hidden penis left corneal replacement COMPLICATIONS/CHIEF COMPLAINT: Fall, Syncope. HISTORY OF PRESENT ILLNESS: See histroy and physical HOSPITAL COURSE: 83 year-old elderly male presents to ED at [facility] with his daughter complaints of patient experiencing a a syncope episode earlier on the evening of admission when he was sitting in his chair at home, leaning forward to grasp his walker, feeling dizzy he fell face first onto the floor, hitting his hand on the side of the arm rest of the chair he was sitting in. This resulted in him having a moderate nosebleed yet patient refused to go to the emergency room at this time when his family encouraged him to come be evaluated. He was assisted off the floor by his son-in-law and his daughter at this time. About a Hour later He reported feeling dizzy and his daughter stated he had a vacant look in his eyes, he did not recognize them and was having seizure like activities with uncontrollably shaking of his limbs that lasted less than a minute. This seizure-like activity occurred approximately less than an hour after he had fallen with his chair, hitting his nose on the floor. He was brought to the ED and admitted for Seizure/ syncope. Syncope/ Presyncope and Mechanical Fall He was noted to have orthostatic hypotension possibly as part of 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 He probably has episodes of orthostatic hypotension when he has symptoms of dizzyness and light headedness presyncopal/ syncopal episode with increased gait imbalance and subsequent loss of balance and fall. CT head and CT cervical spine negative. Carotid US no obstruction No Cardiac arrhythmias noted in more than 24 hours of tele monitoring Possible episode of Seizure has history of partial seizures. patient denies but daughter says about an hour after his fall o his face he did have jerking movement of his limbs which lasted less than a minute keppra and lacosamide levels are pending continue home meds follow up own neurology Constipation has bowel regimen in place. Parkinson disease continue sinemet, rasagiline Atrial fibrillation. has pacemaker in place since 2015 continue amiodarone Coronary artery disease with h/o AMI and s/p CABG in 2003 and stents in 2015 no issues at present troponins not elevated Hypertension. Patient noted to have hypotension on arrival to the ED which resolved with 1 liter of fluid. captopril dosage reduced with hold parameters. Dyslipidemia. continue statin. Congestive heart failure with moderate pulmonary hypertension and right heart failure. no signs of fluid overload at present. was hypotensive on admission discontinued diuretics. Non Hodgkin's lymphoma. treated in 2014 now in remission Carotid artery disease Carotid endarterectomy. carotid US now no occlusion seen Hypothyroid continue synthroid Urinary incontinence with hidden penis. continue flomax and finasteride Glaucoma with left cornea replacement. continue home eye drops. DISCHARGE MEDICATIONS: Please see below. ALLERGIES: Please see below. PHYSICAL EXAMINATION ON DISCHARGE: VITAL SIGNS: Please see below. General Exam: Positive: Alert, Cooperative, No Acute Distress Eye Exam: Positive: PERRLA, Conjunctiva & lids normal, EOMI; Negative: Sclera icteric ENT Exam: Positive: Mucous membr. moist/pink, Tongue Midline, Other ENT (injury to the nose) Neck Exam: Positive: Supple; Negative: JVD, thyromegaly Chest Exam: Positive: Clear to auscultation, Normal air movement Heart Exam: Positive: Rate Normal, Regular Rhythm, Normal S1, Normal S2, Other (Pacemaker left chest wall); Negative: Murmurs, Rubs Telemetry: Positive: No significant arrhythmia Abdomen Exam: Positive: Normal bowel sounds, Soft; Negative: Tenderness, Hepatospenomegaly Extremity Exam: Positive: Normal pulses; Negative: Clubbing, Cyanosis, Edema Skin Exam: Positive: Nl turgor and temperature Neuro Exam: Positive: Normal Speech, Normal Tone Psych Exam: Positive: Mental status NL, Mood NL, Memory Intact, Oriented x 3 LABORATORY DATA: Please see below. ACTIVITY: [As tolerated]. DIET: As tolerated DISPOSITION: 01 Home, Self-Care. DISCHARGE INSTRUCTIONS: Follow up with PMD Follow up with Neurology ITEMS TO FOLLOWUP ON ON OUTPATIENT: Follow up lacosamide and keppra level will need new Echo last one in 2016 DISCHARGE CONDITION: [Stable]. TIME SPENT ON DISCHARGE: 35 minutes. Vital Signs/I&Os Vital Signs Date Time Temp Pulse Resp B/P (MAP) Pulse Ox O2 Delivery O2 Flow Rate FiO2 9/14/19 06:00 70 108/57 (74) 74 70/54 (59) 04/12/19 06:00 98.2 18 99 04/09/19 23:15 4.0 04/09/19 21:14 Room Air I&O- Last 24 Hours up to 6 AM 04/13/19 05:59 Intake Total 120 ml Output Total 800 ml Balance -680 ml Microbiology Microbiology 04/09/19 Blood Culture - Preliminary, Resulted No Growth after 72 hours. All specime... 04/09/19 Blood Culture - Preliminary, Resulted No Growth after 72 hours. All specime... 04/11/19 Urine Culture - Final, Complete Discharge Medications Scheduled Amiodarone HCl (Amiodarone HCl) 200 Mg Tab, 200 MG PO DAILY, (Reported) Atorvastatin Calcium (Atorvastatin Calcium) 10 Mg Tab, 10 MG PO DAILY, (Reported) Brimonidine Tartrate (Alphagan P) 0.1% 5ML Drops, 1 DROP OU BID, (Reported) Captopril (Captopril) 12.5 Mg Tab, 6.25 MG PO DAILY Hold If SBP< 140 Carbidopa/Levodopa (Carbidopa-Levodopa 25-100 Tab) 1 Each Tablet, 2 TAB PO QID, (Reported) 0800, 1200, 1600, 2000 Lacosamide (Vimpat) 100 Mg Tablet, 100 MG PO BID, (Reported) Levetiracetam (Levetiracetam) 750 Mg Tab, 750 MG PO BID, (Reported) Levothyroxine Sodium (Levoxyl) 125 Mcg Tab, 125 MCG PO DAILY, (Reported) Midodrine HCl (Midodrine HCl) 2.5 Mg Tablet, 2.5 MG PO 08,12,16 Nystatin (Nyamyc) 15 Gm Powder, 0 DOSE TOP BID Prednisolone Acetate (Prednisolone Acetate 1% Opth Susp) 5 Ml Drops.susp, 1 DROP OS BID, (Reported) Rasagiline Mesylate (Rasagiline Mesylate) 1 Mg Tablet, 1 MG PO DAILY, (Reported) Scheduled PRN Pimecrolimus (Elidel) 30 Gm Cream..g., 1 DOSE TOP BID PRN for PSORIASIS, (Reported) USE ON FACE AND GROIN NEEDED Allergies Coded Allergies: piperacillin (Verified Allergy, Intermediate, LIP SWELLING, 04/09/19) Egg Derived (Verified Allergy, Unknown, EGG WHITES, 04/09/19) FRUIT (Verified Allergy, Unknown, no Fresh Fruits, he eats canned ok., 09/28/16) He can eat canned but NO Fresh Fruit brimonidine (Verified Allergy, Unknown, 04/09/19) buckwheat (Verified Allergy, Unknown, 04/09/19) TAYLOR PRASAD MD Apr 13, 2019 15:56
[2019-04-28 13:08] LABS: LACOSAMIDE LEVEL 12.6 ug/mL (5.0-10.0)
== END 2019-04-12 14:13 | disposition home or self-care (01) | DRG 312 ==
LOC: M ED 20:50 → M ED INP 20:51 → M MSPAV 04-10 05:16 → OBSVTOIN 04-11 13:52
PROVIDERS: ADMIT Internal Medicine; ATTEND Internal Medicine Nephrology
DX: I95.1 Orthostatic hypotension (principal); R00.1 Bradycardia, unspecified; G40.909 Epilepsy, unspecified, not intractable, without status epilepticus; G20 Parkinson's disease; Z95.0 Presence of cardiac pacemaker; I48.2 Chronic atrial fibrillation; I27.20 Pulmonary hypertension, unspecified; N40.0 Benign prostatic hyperplasia without lower urinary tract symptoms; I25.10 Atherosclerotic heart disease of native coronary artery without angina pectoris; Z95.1 Presence of aortocoronary bypass graft; H40.9 Unspecified glaucoma; Z94.7 Corneal transplant status; I11.0 Hypertensive heart disease with heart failure; K59.00 Constipation, unspecified; I50.9 Heart failure, unspecified; Z85.72 Personal history of non-Hodgkin lymphomas; Z79.899 Other long term (current) drug therapy; Z88.0 Allergy status to penicillin; Z91.038 Other insect allergy status; Z91.012 Allergy to eggs; R32 Unspecified urinary incontinence; Z66 Do not resuscitate; I25.2 Old myocardial infarction

== ENCOUNTER → 2020-01-07 | Outpatient (CLI) | payer MEDICARE, OTHER ==
[~2020-01-07] MED LIST changes: +ELID1CRE11 TOP; -ERYT1OIN26 OU; +ERYT5OIN25 OU; +MIDO2.5T PO; +NYAM10003 TOP; +PREDOPD OS; +RASA1TAB PO; +VIMP100T PO
--- NOTE | 2020-01-07 13:16 | REP ---
CT brain: 01/07/2020. Indication: Stroke. Technique: Unenhanced axial CT images of the brain were obtained from skull base to vertex with coronal reconstructions provided. Comparison: 04/09/2019. Findings: There is no acute intracranial hemorrhage, acute cortical infarction, mass effect or hydrocephalous. Age-related volume loss is present. There are patchy areas of cerebral white matter hypoattenuation most consistent with sequelae of chronic microangiopathic ischemic disease. There is no hydrocephalus. The mastoid air cells and paranasal sinuses are essentially clear. Impression: No acute intracranial process. Electronically Signed by Lucius De DO 01/07/2020 01:07 P
== END ==
LOC: M RAD 08:11
PROVIDERS: ATTEND Psychiatry & Neurology Neurology
DX: I63.9 Cerebral infarction, unspecified (principal); H53.8 Other visual disturbances; R90.82 White matter disease, unspecified